=== PATIENT | female | born 1945 | race Caucasian/White ===

== ENCOUNTER 2019-10-02 00:43 | Inpatient (IN) | payer MEDICARE, OTHER ==
[2019-10-02 01:57] LABS: #Monocytes 0.7 thou/uL (0.11-0.59); #Neutrophils 12.8 thou/uL (1.40-6.50); %Basophils 0.2 % (0.0-1.0); %Eosinophils 0.1 % (0.0-10.0); %Lymphocytes 6.9 % (21.0-51.0); %Monocytes 4.8 % (0.0-10.0); Hemoglobin 16.6 g/dL (12.0-16.0); Mean Corpuscular HGB CONC 32.2 g/dL (32.0-36.0); Mean Corpuscular Hemoglobin 32.1 pg (27.0-31.0); Mean Corpuscular Volume 99.6 fL (78.0-98.0); Mean Platelet Volume 9.7 fL (7.4-10.4); Platelet Count 180 thou/uL (130-400); RBC Distribution Width 15.2 % (11.5-14.5); Red Blood Cell (RBC) Count 5.17 mill/uL (4.20-5.40); White Blood Cell (WBC) Count 14.5 thou/uL (4.8-10.8)
[2019-10-02 01:57] LABS: Actual Bicarbonate (HCO3a) 29.7 mEq/L (22-28); Analyzer IN Cardio ER; Base Excess (BEa) 3.1 mEq/L (-2.0 to +3.0); CO2 Tension 52.4 mmHg (35.0-45.0); Calcium, Ionized (arterial) 1.33 mmol/L (1.12-1.30); Carboxyhemoglobin (COHb) 1.1 gm% (0.0-3.0); Hemoglobin (Hb) 16.7 g/dL (12.0-16.0); O2 Tension (PaO2), arterial 84.1 mmHg (> 70.0); Potassium - ABG Lab 4.54 mmol/L (3.70-5.30); pH, Arterial 7.37 (7.35-7.45)
[2019-10-02 01:58] LABS: Puncture Site RRA
[2019-10-02 02:12] LABS: ALT (SGPT) 38 U/L (8-55); AST (SGOT) 35 U/L (5-34); Albumin 3.7 g/dL (3.4-4.8); Alkaline Phosphatase 77 U/L (40-110); Anion Gap 13 mmol/L (10-20); BUN (Urea Nitrogen) 53 mg/dL (9.8-20.1); Bilirubin, Total 1.3 mg/dL (0.2-1.2); Calc. Creatinine Clearance 0 mL/min (70-130); Calcium 10.4 mg/dL (7.8-10.44); Carbon Dioxide 32 mmol/L (23-31); Chloride 102 mmol/L (98-107); Estimated GFR-MDRD 38; Globulin 2.7 g/dL (2.4-3.5); Glucose 136 mg/dL (83-110); Potassium 4.9 mmol/L (3.5-5.1); Protein, Total 6.4 g/dL (6.0-8.3); Sodium 142 mmol/L (136-145)
[2019-10-02 02:44] LABS: CKMB 0.9 ng/mL (0-6.6)
[2019-10-02] MEDS ORDERED: Furosemide 20 MG/2 ML VIAL ONE (03:05)
[2019-10-02 03:51] LABS: Digoxin 0.19 ng/mL (0.8-2.0)
[2019-10-02] MEDS ORDERED: Digoxin 0.5 MG/2 ML AMP ONE (04:23)
[2019-10-02] MEDS ORDERED: Acetaminophen 325 MG TAB PO PRN (04:27)
[2019-10-02] MEDS ORDERED: Acetaminophen 650 MG Suppository PR PRN (04:27)
[2019-10-02] MEDS ORDERED: HYDROcodone/Acetaminophen 5/325 mg Tablet PO PRN (04:27)
--- NOTE | 2019-10-02 04:38 | PDOC.HHP ---
Hospitalist HPI - History of Present Illness sob History of Present Illness: history is limited. patient only oriented to self. no previous admission in this institution, no family members present at the moment of my evaluation Case of an 74y/o female with pmhx of cad, chf atrial fibrillation who comes to hospital due to sob. apparrently patient was on her usual state of health until today when they noted patient with increasing dyspnea and altered mental state for which she was brought to hospital for evaluation. patient usually uses cpap at night and has a chronic melchor, patient was removing her cpap and removed the melchor they got worried due to the change in mentation and brought her for evaluation. at the ED patient was diagnosed with D chf and hospitalist was called for evaluation. patient is only oriented to person jonathon but is able to answer yes/ no question and follow simple commands Hospitalist ROS - Review of Systems All other systems reviewed; all pertinent +/- noted in HPI/Subj Hospitalist History - Past Medical History Cardiac: reports: AFIB, CAD, CHF - Past Surgical History Past Surgical History: reports: Appendectomy, Cholecystectomy, Hysterectomy - Family History Other Family History: unable to asses due to mental status - Social History Other Social History: unable to asses due to mental status - Exam General Appearance: NAD, awake alert Eye: PERRL, anicteric sclera ENT: normocephalic atraumatic, no oropharyngeal lesions Neck: supple, symmetric, JVD Heart: RRR, no murmur, no gallops Respiratory: no ronchi, rales, tachypneic Gastrointestinal: soft, non-tender, non-distended Extremities: no cyanosis, 2+ LE edema Skin: normal turgor, no lesions Neurological: cranial nerve grossly intact, normal sensation to touch Musculoskeletal: normal tone, normal strength Psychiatric: normal affect, normal behavior, oriented to person Hospitalist Results - Labs Result Diagrams: 10/02/19 01:15 10/02/19 01:15 Lab results: WBC 14.5 thou/uL (4.8-10.8) H 10/02/19 01:15 Hgb 16.6 g/dL (12.0-16.0) H 10/02/19 01:15 Hct 51.4 % (36.0-47.0) H 10/02/19 01:15 MCV 99.6 fL (78.0-98.0) H 10/02/19 01:15 Plt Count 180 thou/uL (130-400) 10/02/19 01:15 Neutrophils % 88.0 % (42.0-75.0) H 10/02/19 01:15 ABG pH 7.37 (7.35-7.45) 10/02/19 01:42 ABG pCO2 52.4 mmHg (35.0-45.0) H 10/02/19 01:42 ABG pO2 84.1 mmHg (> 70.0) H 10/02/19 01:42 Sodium 142 mmol/L (136-145) 10/02/19 01:15 Potassium 4.9 mmol/L (3.5-5.1) 10/02/19 01:15 Chloride 102 mmol/L (98-107) 10/02/19 01:15 Carbon Dioxide 32 mmol/L (23-31) H 10/02/19 01:15 BUN 53 mg/dL (9.8-20.1) H 10/02/19 01:15 Creatinine 1.36 mg/dL (0.6-1.1) H 10/02/19 01:15 Glucose 136 mg/dL (83-110) H 10/02/19 01:15 Lactic Acid 1.4 mmol/L (0.5-2.2) 10/02/19 01:15 Calcium 10.4 mg/dL (7.8-10.44) 10/02/19 01:15 Total Bilirubin 1.3 mg/dL (0.2-1.2) H 10/02/19 01:15 AST 35 U/L (5-34) H 10/02/19 01:15 ALT 38 U/L (8-55) 10/02/19 01:15 Alkaline Phosphatase 77 U/L (40-110) 10/02/19 01:15 CK-MB (CK-2) 0.9 ng/mL (0-6.6) 10/02/19 01:15 Troponin I 0.077 ng/mL (< 0.028) H 10/02/19 01:15 B-Natriuretic Peptide 708.7 pg/mL (0-100) H 10/02/19 01:15 Serum Total Protein 6.4 g/dL (6.0-8.3) 10/02/19 01:15 Albumin 3.7 g/dL (3.4-4.8) 10/02/19 01:15 - EKG Interpretation EKG: no ischemic st changes - Radiology Interpretation Chest x-ray Additional Comment: cardiomegaly, vasculor congestion Hospitalist H&P A/P - Problem (1) Decompensated heart failure Code(s): I50.9 - HEART FAILURE, UNSPECIFIED Status: Acute (2) CAD (coronary artery disease) Code(s): I25.10 - ATHSCL HEART DISEASE OF [place] CORONARY ARTERY W/O ANG PCTRS Status: Acute (3) Atrial fibrillation Code(s): I48.91 - UNSPECIFIED ATRIAL FIBRILLATION Status: Acute (4) Leukocytosis Code(s): D72.829 - ELEVATED WHITE BLOOD CELL COUNT, UNSPECIFIED Status: Acute (5) Elevated troponin Code(s): R79.89 - OTHER SPECIFIED ABNORMAL FINDINGS OF BLOOD CHEMISTRY Status : Acute - Plan Plan: 74y/o female with the stated pmhx who comes due to worsening dyspnea and disorientation d chf - lasix 20mg iv q 12 - continue beta chau - consider adding acei, currently 1.36 creatinine unknown if this is a new finding or chronic - 2d echo - consider cardio consult if needed elevated troponin - likely nonstemi type 2 - follow series to evaluate trend atrial fibrillation - continue rate control - patient was not in any blood thinner leukocytosis - unclear if sirs vs infection - due to altered mental state and hx of chronic melchor use will start prophylactic rocephin and get u/a and u/c if needed
[2019-10-02] MEDS ORDERED: cefTRIAXone\\ROCEPHIN 1 GM in Sodium Chloride 0.9% 100 ML IVPB SCH (05:00)
[2019-10-02 05:25] LABS: Troponin I 0.019 ng/mL (< 0.028)
[2019-10-02] MEDS: Furosemide 20 MG/2 ML VIAL SLOW IVP SCH ×2 (06:07→15:09)
[2019-10-02] MEDS: Enoxaparin Sodium 40 MG/0.4 ML SYRINGE SC SCH (07:41)
[2019-10-02] MEDS: Aspirin 81 mg Enteric Coated Tablet PO SCH (07:42)
--- NOTE | 2019-10-02 07:55 | RAD ---
EXAM: Single view of the chest HISTORY: Pneumonia and dyspnea COMPARISON: None FINDINGS: Single view of the chest shows an enlarged cardiomediastinal silhouette. There appears to b e a small left pleural effusion with adjacent atelectasis versus infiltrate. The bones are unremarkable. IMPRESSION: Left pleural effusion with adjacent atelectasis versus infiltrate
[2019-10-02 08:49] LABS: Troponin I 0.013 ng/mL (< 0.028)
[2019-10-02] MEDS ORDERED: Metoprolol Tartrate 25 MG TAB PO SCH (09:00)
[2019-10-02] MEDS: Nystatin Powder 15 GM BOT TOP SCH (10:20)
[2019-10-02] MEDS: Digoxin 0.125 MG TAB PO SCH (10:20)
--- NOTE | 2019-10-02 10:26 | PDOC.HOSPP ---
- Subjective Encounter Date: 10/02/19 Encounter Time: 10:23 Subjective: Patient states she feels better than yesterday, states she feels tired. Denies any pain. She had some toast this morning. No n/v. Difficulty obtaining much information from the patient as she is lethargic. Nurse today state he does not know how she is comparison to when she first came in. - Objective Vital Signs & Weight: Vital Signs (12 hours) Temp Pulse Resp BP Pulse Ox 10/02/19 10:20 90 10/02/19 07:52 97.8 F 90 20 133/72 97 10/02/19 05:12 98 10/02/19 04:55 98.9 F 97 22 H 138/88 98 Weight Weight 225 lb 4.8 oz I&O: Per RN, she had 2 wet diapers this morning. Result Diagrams: 10/02/19 01:15 10/02/19 01:15 Radiology Reviewed by me: Yes EKG Reviewed by me: Yes Hospitalist ROS - Review of Systems ROS unobtainable: due to mental status - Medication Medications: Active Medications Generic Name Dose Route Start Last Admin Trade Name Freq PRN Reason Stop Dose Admin Aspirin 81 mg 10/02/19 09:00 10/02/19 07:42 Ecotrin PO 81 mg DAILY NATALIA Administration Digoxin 0.125 mg 10/02/19 09:00 10/02/19 10:20 Lanoxin PO 0.125 mg MoTuWeThFr NATALIA Administration Enoxaparin Sodium 40 mg 10/02/19 09:00 10/02/19 07:41 Lovenox SC 40 mg 0900 NATALIA Administration Furosemide 20 mg 10/02/19 06:00 10/02/19 06:07 Lasix SLOW IVP 20 mg 0600,1400 NATALIA Administration Metoprolol Succinate 25 mg 10/02/19 09:00 10/02/19 07:42 Toprol Xl PO 25 mg DAILY NATALIA Administration Nystatin 0 gm 10/02/19 09:00 10/02/19 10:20 Mycostatin Powder TOP 1 applic DAILY NATALIA Administration - Exam General Appearance: ill appearing General - other findings: Patient appears lethargic, slight work in breathing ENT: normocephalic atraumatic, no oropharyngeal lesions, dry oral mucosa Neck: supple, no lymphadenopathy Heart: RRR Respiratory: CTAB Respiratory - other findings: slight increased work of breathing, Gastrointestinal: soft, non-tender, non-distended, no guarding, no rigidity Extremities: 2+ LE edema Extremities - other findings: fingertips dusky in appearance Skin: no lesions, no rashes Neurological - other findings: Difficult to assess due to lethargy, opens eyes, does not follow (EOM) Musculoskeletal: generalized weakness Psychiatric: A&O x 3, lethargic Psychiatric - other findings: Continues to states she is tired, answers yes/no questions Hosp A/P (1) Lethargic Code(s): R53.83 - OTHER FATIGUE Status: Acute Plan: Unclear if she is at baseline. Possibly due to underlying infection vs. hypoxia vs. dehydration. UA/UCx ordered. Repeat CXR given questionable infiltrate noted on initial CXR. (2) Mouth breathing Code(s): R06.5 - MOUTH BREATHING Status: Acute Plan: Mouth breathing, with slight increased work of breathing. Dusky appearance to fingertips. Sats low with NC off. I placed NC back on and Sats 90% on 2L. I increased O2 to 3L and sats improved to 96%. Obtain ABG. As above, repeat CXR. (3) Decompensated heart failure Code(s): I50.9 - HEART FAILURE, UNSPECIFIED Status: Acute Plan: Left pleural effusion on CXR, she was started on Lasix 20 mg BID IV. 2+ edema, continue diuretics. BNP 700s. Awaiting Echo. Consult cardiology as per attending. (4) Atrial fibrillation Code(s): I48.91 - UNSPECIFIED ATRIAL FIBRILLATION Status: Chronic Plan: Initially came in with afib RVR, she has resumed digoxin which she takes at home. HR in 80s. Cardiology consult in place re: decompensated HF. Continue cardiac monitoring. (5) Elevated troponin Code(s): R79.89 - OTHER SPECIFIED ABNORMAL FINDINGS OF BLOOD CHEMISTRY Status : Acute Plan: Continue to trend troponin. Continue cardiac monitoring. patient without any chest pain. (6) Leukocytosis Code(s): D72.829 - ELEVATED WHITE BLOOD CELL COUNT, UNSPECIFIED Status: Acute Plan: Repeat CXR to assess questionable infiltrate seen on initial CXR. UA/UCx. Check lactic acid (7) CAD (coronary artery disease) Code(s): I25.10 - ATHSCL HEART DISEASE OF [place] CORONARY ARTERY W/O ANG PCTRS Status: Chronic - Plan old records reviewed/req As above.
[2019-10-02 11:23] LABS: Bacteria/HPF 2+ HPF (None Seen); Bilirubin Negative (Negative); Blood, Urine 2+ (Negative); Clarity Turbid (Clear); Glucose, Urine (Dipstick) Normal (Negative); Ketone, Urine Negative (Negative); Leukocyte 250 Leu/uL (Negative); Nitrite Negative (Negative); Protein, Urine (Dipstick) Negative (Neg-Trace); RBC/HPF 0-3 HPF (0-3); Specific Gravity, Urine 1.014 (1.002-1.036); Squamous Epithelial 0-3 HPF (0-3); Urobilinogen Normal mg/dL (Less than 2); WBC/HPF 0-3 HPF (0-3)
[2019-10-02 11:25] LABS: Urine Culture Reflex Yes Yes
[2019-10-02 11:51] LABS: SARS-CoV-2 MS2 Positive; SARS-CoV-2 N Gene Negative; SARS-CoV-2 S Gene Negative; SARS-CoV-2 by NAA Not Detected (NotDetected); SARS-CoV-2 orf1ab Negative
[2019-10-02 11:53] LABS: Actual Bicarbonate (HCO3a) 32.1 mEq/L (22-28); Base Excess (BEa) 4.6 mEq/L (-2.0 to +3.0); CO2 Tension 58.9 mmHg (35.0-45.0); Calcium, Ionized (arterial) 1.31 mmol/L (1.12-1.30); Carboxyhemoglobin (COHb) 1.4 gm% (0.0-3.0); Hemoglobin (Hb) 15.5 g/dL (12.0-16.0); O2 Tension (PaO2), arterial 96.7 mmHg (> 70.0); pH, Arterial 7.35 (7.35-7.45)
[2019-10-02 11:54] LABS: Puncture Site RRA
[2019-10-02 11:55] LABS: ALV-art Gradient 57.835 (0-20)
[2019-10-02 15:28] LABS: #Eosinphils 0.1 thou/uL (0.0-0.7); #Lymphocytes 1.5 thou/uL (1.20-3.40); #Monocytes 0.7 thou/uL (0.11-0.59); %Basophils 0.3 % (0.0-1.0); %Eosinophils 0.9 % (0.0-10.0); %Lymphocytes 13.5 % (21.0-51.0); %Neutrophils 79.3 % (42.0-75.0); Hemoglobin 16.3 g/dL (12.0-16.0); Mean Corpuscular HGB CONC 31.2 g/dL (32.0-36.0); Mean Corpuscular Hemoglobin 31.8 pg (27.0-31.0); Mean Platelet Volume 9.2 fL (7.4-10.4); Platelet Count 156 thou/uL (130-400); RBC Distribution Width 15.3 % (11.5-14.5); Red Blood Cell (RBC) Count 5.12 mill/uL (4.20-5.40); White Blood Cell (WBC) Count 11.3 thou/uL (4.8-10.8)
--- NOTE | 2019-10-02 15:45 | RAD ---
EXAM: Single view of the chest HISTORY: Pneumonia COMPARISON: 10/02/2019 FINDINGS: Single view of the chest shows an enlarged but stable cardiomediastinal silhouette. Opacity seen in the left lung base which likely represents an infiltrate and adjacent pleural effusion. The bones are unremarkable. IMPRESSION: Left lower lobe infiltrate with adjacent pleural effusion
[2019-10-02 15:51] LABS: ALT (SGPT) 34 U/L (8-55); AST (SGOT) 32 U/L (5-34); Albumin 3.1 g/dL (3.4-4.8); Alkaline Phosphatase 66 U/L (40-110); Anion Gap 13 mmol/L (10-20); BUN (Urea Nitrogen) 46 mg/dL (9.8-20.1); Bilirubin, Direct 0.7 mg/dL (0.1-0.3); Bilirubin, Total 1.5 mg/dL (0.2-1.2); Calc. Creatinine Clearance 80 mL/min (70-130); Calcium 9.6 mg/dL (7.8-10.44); Carbon Dioxide 27 mmol/L (23-31); Chloride 105 mmol/L (98-107); Estimated GFR-MDRD 53; Globulin 2.7 g/dL (2.4-3.5); Glucose 82 mg/dL (83-110); Magnesium 2.3 mg/dL (1.6-2.6); Potassium 4.6 mmol/L (3.5-5.1); Protein, Total 5.8 g/dL (6.0-8.3); Sodium 140 mmol/L (136-145)
[2019-10-02] MEDS: cefTRIAXone\\ROCEPHIN 1 GM in Sodium Chloride 0.9% 100 ML IVPB SCH (19:54)
[2019-10-02] MEDS: traZODone HCl 50 MG TAB PO SCH (19:55)
[2019-10-02] MEDS ORDERED: Prevnar 13-Val Conj/PF 0.5 ML SYRINGE IM ONE ×2 (21:00)
[2019-10-03] MEDS: Furosemide 20 MG/2 ML VIAL SLOW IVP SCH ×2 (04:32→15:47)
[2019-10-03 05:53] LABS: ALT (SGPT) 32 U/L (8-55); AST (SGOT) 27 U/L (5-34); Albumin 3.1 g/dL (3.4-4.8); Alkaline Phosphatase 60 U/L (40-110); Anion Gap 9 mmol/L (10-20); BUN (Urea Nitrogen) 40 mg/dL (9.8-20.1); Bilirubin, Total 1.4 mg/dL (0.2-1.2); Calc. Creatinine Clearance 71 mL/min (70-130); Calcium 9.5 mg/dL (7.8-10.44); Carbon Dioxide 37 mmol/L (23-31); Chloride 101 mmol/L (98-107); Estimated GFR-MDRD 46; Globulin 2.4 g/dL (2.4-3.5); Glucose 91 mg/dL (83-110); Potassium 4.3 mmol/L (3.5-5.1); Protein, Total 5.5 g/dL (6.0-8.3); Sodium 143 mmol/L (136-145)
[2019-10-03 05:56] LABS: #Eosinphils 0.1 thou/uL (0.0-0.7); #Lymphocytes 1.4 thou/uL (1.20-3.40); #Monocytes 0.4 thou/uL (0.11-0.59); #Neutrophils 7.9 thou/uL (1.40-6.50); %Basophils 0.4 % (0.0-1.0); %Eosinophils 1.1 % (0.0-10.0); %Lymphocytes 14.5 % (21.0-51.0); %Monocytes 4.1 % (0.0-10.0); %Neutrophils 79.9 % (42.0-75.0); Hemoglobin 15.5 g/dL (12.0-16.0); Mean Corpuscular HGB CONC 32.4 g/dL (32.0-36.0); Mean Corpuscular Hemoglobin 32.3 pg (27.0-31.0); Mean Corpuscular Volume 99.6 fL (78.0-98.0); Mean Platelet Volume 10.5 fL (7.4-10.4); Platelet Count 118 thou/uL (130-400); Platelet Morphology Comment Appears Decreased; Red Blood Cell (RBC) Count 4.78 mill/uL (4.20-5.40); White Blood Cell (WBC) Count 9.8 thou/uL (4.8-10.8)
[2019-10-03] MEDS: Aspirin 81 mg Enteric Coated Tablet PO SCH (11:39)
[2019-10-03] MEDS: Metoprolol Tartrate 25 MG TAB PO SCH ×2 (11:39→21:36)
[2019-10-03] MEDS: Enoxaparin Sodium 40 MG/0.4 ML SYRINGE SC SCH (11:40)
[2019-10-03] MEDS: PARoxetine CR 12.5 MG TAB PO SCH (11:40)
[2019-10-03] MEDS: Digoxin 0.125 MG TAB PO SCH (11:42)
[2019-10-03 13:13] LABS: INR-International Normal Ratio 2.3; Prothrombin Time 24.9 sec (12.0-14.7)
[2019-10-03] MEDS: Nystatin Powder 15 GM BOT TOP SCH (15:52)
--- NOTE | 2019-10-03 16:34 | PDOC.HOSPP ---
- Subjective Encounter Date: 10/03/19 Encounter Time: 16:30 Subjective: rsting, no acute cp or distress. disuresed, tampon cath, urine outut around 800ml in the contianer. COVID neg. - Objective Vital Signs & Weight: Vital Signs (12 hours) Temp Pulse Pulse Pulse Resp BP BP 10/03/19 11:42 98.3 F 91 24 H 10/03/19 09:51 93 88 120/58 L 111/63 10/03/19 08:00 97.8 F 92 20 BP Pulse Ox Pulse Ox Pulse Ox 10/03/19 11:42 141/62 H 92 L 10/03/19 09:51 96 95 10/03/19 08:00 145/74 H 96 Weight Weight 225 lb 4.8 oz I&O: 10/02/19 10/03/19 10/04/19 06:59 06:59 06:59 Intake Total 1060 Output Total 750 1100 Balance 310 -1100 Result Diagrams: 10/03/19 05:20 10/03/19 05:20 Hospitalist ROS - Medication Medications: Active Medications Generic Name Dose Route Start Last Admin Trade Name Haydenq PRN Reason Stop Dose Admin Aspirin 81 mg 10/02/19 09:00 10/03/19 11:39 Ecotrin PO 81 mg DAILY NATALIA Administration Digoxin 0.125 mg 10/02/19 09:00 10/03/19 11:42 Lanoxin PO 0.125 mg MoTuWeThFr NATALIA Administration Enoxaparin Sodium 40 mg 10/02/19 09:00 10/03/19 11:40 Lovenox SC 40 mg 0900 NATALIA Administration Furosemide 20 mg 10/02/19 06:00 10/03/19 15:47 Lasix SLOW IVP 20 mg 0600,1400 NATALIA Administration Ceftriaxone Sodium 1 gm/ 100 mls @ 200 mls/hr 10/02/19 20:00 10/02/19 19:54 Sodium Chloride IVPB 100 mls Q24HR NATALIA Administration Metoprolol Tartrate 25 mg 10/03/19 09:00 10/03/19 11:39 Lopressor PO 25 mg BID NATALIA Administration Nystatin 0 gm 10/02/19 09:00 10/03/19 15:52 Mycostatin Powder TOP 1 applic DAILY NATALIA Administration Paroxetine HCl 37.5 mg 10/03/19 09:00 10/03/19 11:40 Paxil Cr PO 37.5 mg DAILY NATALIA Administration Sodium Chloride 10 ml 10/02/19 21:00 10/03/19 15:47 Flush - Normal Saline IVF 10 ml Q12HR NATALIA Administration Sodium Chloride 10 ml 10/02/19 12:13 10/03/19 15:50 Flush - Normal Saline IVF 10 ml PRN PRN Administration Saline Flush Trazodone HCl 50 mg 10/02/19 21:00 10/02/19 19:55 Desyrel PO 50 mg HS NATALIA Administration - Exam General Appearance: NAD, awake alert Eye: PERRL, anicteric sclera ENT: normocephalic atraumatic Neck: supple Heart: RRR, normal peripheral pulses Respiratory: CTAB, normal chest expansion Gastrointestinal: soft, normal bowel sounds Extremities: 2+ LE edema Hosp A/P - Plan (1) Lethargic Code(s): R53.83 - OTHER FATIGUE Status: Acute Plan: Unclear if she is at baseline. Possibly due to underlying infection vs. hypoxia vs. dehydration. UA/UCx ordered. Repeat CXR given questionable infiltrate noted on initial CXR. (2) Mouth breathing Code(s): R06.5 - MOUTH BREATHING Status: Acute Plan: Mouth breathing, with slight increased work of breathing. Dusky appearance to fingertips. Sats low with NC off. I placed NC back on and Sats 90% on 2L. I increased O2 to 3L and sats improved to 96%. Obtain ABG. As above, repeat CXR. (3) Decompensated heart failure Code(s): I50.9 - HEART FAILURE, UNSPECIFIED Status: Acute Plan: Left pleural effusion on CXR, she was started on Lasix 20 mg BID IV. 2+ edema, continue diuretics. BNP 700s. Awaiting Echo. Consult cardiology as per attending. (4) Atrial fibrillation Code(s): I48.91 - UNSPECIFIED ATRIAL FIBRILLATION Status: Chronic Plan: Initially came in with afib RVR, she has resumed digoxin which she takes at home. HR in 80s. Cardiology consult in place re: decompensated HF. Continue cardiac monitoring. (5) Elevated troponin Code(s): R79.89 - OTHER SPECIFIED ABNORMAL FINDINGS OF BLOOD CHEMISTRY Status : Acute Plan: Continue to trend troponin. Continue cardiac monitoring. patient without any chest pain. (6) Leukocytosis Code(s): D72.829 - ELEVATED WHITE BLOOD CELL COUNT, UNSPECIFIED Status: Acute Plan: Repeat CXR to assess questionable infiltrate seen on initial CXR. UA/UCx. Check lactic acid (7) CAD (coronary artery disease) Code(s): I25.10 - ATHSCL HEART DISEASE OF [place] CORONARY ARTERY W/O ANG PCTRS Status: Chronic cont diureisis COVID neg' labs
[2019-10-03] MEDS: Warfarin Sodium 5 MG TAB PO SCH (18:36)
[2019-10-03] MEDS: traZODone HCl 50 MG TAB PO SCH (21:36)
[2019-10-03] MEDS: cefTRIAXone\\ROCEPHIN 1 GM in Sodium Chloride 0.9% 100 ML IVPB SCH (21:36)
[2019-10-04 04:40] LABS: Prothrombin Time 22.7 sec (12.0-14.7)
[2019-10-04 04:54] LABS: Anion Gap 8 mmol/L (10-20); BUN (Urea Nitrogen) 27 mg/dL (9.8-20.1); Calc. Creatinine Clearance 82 mL/min (70-130); Calcium 8.9 mg/dL (7.8-10.44); Carbon Dioxide 37 mmol/L (23-31); Chloride 99 mmol/L (98-107); Estimated GFR-MDRD 57; Glucose 92 mg/dL (83-110); Potassium 3.8 mmol/L (3.5-5.1); Sodium 140 mmol/L (136-145)
[2019-10-04] MEDS: Furosemide 20 MG/2 ML VIAL SLOW IVP SCH ×2 (06:12→15:21)
[2019-10-04] MEDS: Metoprolol Tartrate 25 MG TAB PO SCH ×2 (09:45→22:01)
[2019-10-04] MEDS: PARoxetine CR 12.5 MG TAB PO SCH (09:45)
[2019-10-04] MEDS: Aspirin 81 mg Enteric Coated Tablet PO SCH (09:45)
[2019-10-04] MEDS: Digoxin 0.125 MG TAB PO SCH (09:45)
[2019-10-04 10:13] LABS: Digoxin 0.46 ng/mL (0.8-2.0)
[2019-10-04] MEDS: Nystatin Powder 15 GM BOT TOP SCH (10:35)
[2019-10-04] MEDS: Enoxaparin Sodium 40 MG/0.4 ML SYRINGE SC SCH (12:58)
--- NOTE | 2019-10-04 14:17 | PDOC.HOSPP ---
- Subjective Encounter Date: 10/04/19 Encounter Time: 09:40 Subjective: pt doing well, not OOB, but able to- says. neg balance; 8 lbs wt loss, still has pitting edema 2+ in LE. - Objective Vital Signs & Weight: Vital Signs (12 hours) Temp Pulse Resp BP Pulse Ox 10/04/19 12:51 97.7 F 70 19 107/60 92 L 10/04/19 08:39 98.1 F 95 20 136/65 96 10/04/19 06:10 98.0 F 89 20 137/68 97 10/04/19 05:44 95 Weight Weight 217 lb 4.8 oz I&O: 10/03/19 10/04/19 10/05/19 06:59 06:59 06:59 Intake Total 1060 240 Output Total 750 3100 1000 Balance 310 -5470 -1000 Result Diagrams: 10/03/19 05:20 10/04/19 04:23 Hospitalist ROS - Medication Medications: Active Medications Generic Name Dose Route Start Last Admin Trade Name [place] PRN Reason Stop Dose Admin Aspirin 81 mg 10/02/19 09:00 10/04/19 09:45 Ecotrin PO 81 mg DAILY NATALIA Administration Digoxin 0.125 mg 10/02/19 09:00 10/04/19 09:45 Lanoxin PO 0.125 mg MoTuWeThFr NATALIA Administration Enoxaparin Sodium 40 mg 10/02/19 09:00 10/04/19 12:58 Lovenox SC 40 mg 0900 NATALIA Administration Furosemide 20 mg 10/02/19 06:00 10/04/19 06:12 Lasix SLOW IVP 20 mg 0600,1400 NATALIA Administration Ceftriaxone Sodium 1 gm/ 100 mls @ 200 mls/hr 10/02/19 20:00 10/03/19 21:36 Sodium Chloride IVPB 100 mls Q24HR NATALIA Administration Metoprolol Tartrate 25 mg 10/03/19 09:00 10/04/19 09:45 Lopressor PO 25 mg BID NATALIA Administration Nystatin 0 gm 10/02/19 09:00 10/04/19 10:35 Mycostatin Powder TOP 1 applic DAILY NATALIA Administration Paroxetine HCl 37.5 mg 10/03/19 09:00 10/04/19 09:45 Paxil Cr PO 37.5 mg DAILY NATALIA Administration Sodium Chloride 10 ml 10/02/19 21:00 07/15/20 13:01 Flush - Normal Saline IVF Not Given Q12HR NATALIA Sodium Chloride 10 ml 10/02/19 12:13 10/03/19 15:50 Flush - Normal Saline IVF 10 ml PRN PRN Administration Saline Flush Trazodone HCl 50 mg 10/02/19 21:00 10/03/19 21:36 Desyrel PO 50 mg HS NATALIA Administration Warfarin Sodium 5 mg 10/03/19 17:00 10/03/19 18:36 Coumadin PO 5 mg 1700 NATALIA Administration - Exam General Appearance: NAD, awake alert Eye: PERRL ENT: normocephalic atraumatic Neck: supple Heart: RRR Respiratory: CTAB, normal chest expansion Gastrointestinal: soft, normal bowel sounds Extremities: 2+ LE edema Neurological: no focal deficits Hosp A/P - Plan (1) Lethargic Code(s): R53.83 - OTHER FATIGUE Status: Acute Plan: Unclear if she is at baseline. Possibly due to underlying infection vs. hypoxia vs. dehydration. UA/UCx ordered. Repeat CXR given questionable infiltrate noted on initial CXR. (2) Mouth breathing Code(s): R06.5 - MOUTH BREATHING Status: Acute Plan: Mouth breathing, with slight increased work of breathing. Dusky appearance to fingertips. Sats low with NC off. I placed NC back on and Sats 90% on 2L. I increased O2 to 3L and sats improved to 96%. Obtain ABG. As above, repeat CXR. (3) Decompensated heart failure Code(s): I50.9 - HEART FAILURE, UNSPECIFIED Status: Acute Plan: Left pleural effusion on CXR, she was started on Lasix 20 mg BID IV. 2+ edema, continue diuretics. BNP 700s. (4) Atrial fibrillation Code(s): I48.91 - UNSPECIFIED ATRIAL FIBRILLATION Status: Chronic Plan: Initially came in with afib RVR, she has resumed digoxin which she takes at home. HR in 80s. - on coumadin--therapeutic. (5) Elevated troponin Code(s): R79.89 - OTHER SPECIFIED ABNORMAL FINDINGS OF BLOOD CHEMISTRY Status : Acute Plan: Continue to trend troponin. Continue cardiac monitoring. patient without any chest pain. (6) Leukocytosis Code(s): D72.829 - ELEVATED WHITE BLOOD CELL COUNT, UNSPECIFIED Status: Acute Plan: Repeat CXR to assess questionable infiltrate seen on initial CXR. UA/UCx. Check lactic acid (7) CAD (coronary artery disease) Code(s): I25.10 - ATHSCL HEART DISEASE OF [place] CORONARY ARTERY W/O ANG PCTRS Status: Chronic cont diureisis--inc the dose as still has 2+ pitting edema COVID neg' chronic meta alkalosis - d/t being on chr diuretics -expect to go up. - will give diamox, as she needs little more diuresis. -echo eF 60% LAD, no aort insuff. PT/OT c/s/ labs
[2019-10-04] MEDS ORDERED: Furosemide 20 MG/2 ML VIAL SLOW IVP SCH (14:30)
[2019-10-04] MEDS: Warfarin Sodium 5 MG TAB PO SCH (19:00)
[2019-10-04] MEDS: AcetaZOLAMIDE 250 MG TAB PO SCH (22:00)
[2019-10-04] MEDS: traZODone HCl 50 MG TAB PO SCH (22:02)
[2019-10-05 04:17] LABS: INR-International Normal Ratio 2.7; PTT 37.7 sec (22.9-36.1); Prothrombin Time 28.5 sec (12.0-14.7)
[2019-10-05 04:30] LABS: BUN (Urea Nitrogen) 19 mg/dL (9.8-20.1); Calc. Creatinine Clearance 86 mL/min (70-130); Calcium 8.9 mg/dL (7.8-10.44); Estimated GFR-MDRD 62; Glucose 92 mg/dL (83-110)
[2019-10-05 04:41] LABS: Anion Gap 11 mmol/L (10-20); Carbon Dioxide 34 mmol/L (23-31); Chloride 96 mmol/L (98-107); Potassium 3.4 mmol/L (3.5-5.1); Sodium 138 mmol/L (136-145)
[2019-10-05] MEDS ORDERED: Furosemide 40 MG/4 ML VIAL SLOW IVP SCH ×2 (06:00→08:36)
[2019-10-05] MEDS: Enoxaparin Sodium 40 MG/0.4 ML SYRINGE SC SCH (08:36)
[2019-10-05] MEDS: Metoprolol Tartrate 25 MG TAB PO SCH ×2 (08:37→20:39)
[2019-10-05] MEDS: Digoxin 0.125 MG TAB PO SCH (08:37)
[2019-10-05] MEDS: Aspirin 81 mg Enteric Coated Tablet PO SCH (08:38)
[2019-10-05] MEDS: Nystatin Powder 15 GM BOT TOP SCH (08:38)
[2019-10-05] MEDS: AcetaZOLAMIDE 250 MG TAB PO SCH ×2 (08:38→20:38)
[2019-10-05] MEDS: PARoxetine CR 12.5 MG TAB PO SCH (08:38)
[2019-10-05] MEDS ORDERED: Furosemide 20 MG/2 ML VIAL SLOW IVP SCH ×2 (08:45→14:00)
--- NOTE | 2019-10-05 12:38 | PDOC.HOSPP ---
- Subjective Encounter Date: 10/05/19 Encounter Time: 09:10 Subjective: pt looks little fatigued. being diuresed. emea is improving, negative balance over 1.8 li - Objective Vital Signs & Weight: Vital Signs (12 hours) Temp Pulse Pulse Resp BP BP BP 10/05/19 11:21 98.6 F 69 18 115/63 10/05/19 09:24 85 113/57 L 10/05/19 08:35 98.2 F 89 18 111/58 L 10/05/19 03:40 97.8 F 81 18 132/80 Pulse Ox Pulse Ox 10/05/19 11:21 96 10/05/19 09:24 96 10/05/19 08:35 92 L 10/05/19 03:40 95 Weight Weight 211 lb 12.8 oz I&O: 10/04/19 10/05/19 10/06/19 06:59 06:59 06:59 Intake Total 240 424 Output Total 3100 2250 Balance -4695 -9018 Result Diagrams: 10/03/19 05:20 10/05/19 03:40 Hospitalist ROS - Medication Medications: Active Medications Generic Name Dose Route Start Last Admin Trade Name Freq PRN Reason Stop Dose Admin Acetazolamide 500 mg 10/04/19 21:00 10/05/19 08:38 Diamox PO 10/06/19 10:00 500 mg BID NATALIA Administration Aspirin 81 mg 10/02/19 09:00 10/05/19 08:38 Ecotrin PO 81 mg DAILY NATALIA Administration Digoxin 0.125 mg 10/02/19 09:00 10/05/19 08:37 Lanoxin PO 0.125 mg MoTuWeThFr NATALIA Administration Enoxaparin Sodium 40 mg 10/02/19 09:00 10/05/19 08:36 Lovenox SC 40 mg 0900 NATALIA Administration Metoprolol Tartrate 6.25 mg 10/04/19 21:00 10/05/19 08:37 Lopressor PO 6.25 mg BID NATALIA Administration Nystatin 0 gm 10/02/19 09:00 10/05/19 08:38 Mycostatin Powder TOP 1 applic DAILY NATALIA Administration Paroxetine HCl 37.5 mg 10/03/19 09:00 10/05/19 08:38 Paxil Cr PO 37.5 mg DAILY NATALIA Administration Sodium Chloride 10 ml 10/02/19 21:00 10/05/19 08:38 Flush - Normal Saline IVF 10 ml Q12HR NATALIA Administration Sodium Chloride 10 ml 10/02/19 12:13 10/05/19 05:47 Flush - Normal Saline IVF 10 ml PRN PRN Administration Saline Flush Warfarin Sodium 5 mg 10/03/19 17:00 10/04/19 19:00 Coumadin PO 5 mg 1700 NATALIA Administration - Exam General Appearance: NAD, awake alert Eye: PERRL ENT: normocephalic atraumatic Neck: supple Heart: RRR Respiratory: CTAB, normal chest expansion Gastrointestinal: soft, normal bowel sounds Extremities: 1+ LE edema Neurological: no focal deficits Hosp A/P - Plan (1) Lethargic Code(s): R53.83 - OTHER FATIGUE Status: Acute Plan: Unclear if she is at baseline. Possibly due to underlying infection vs. hypoxia vs. dehydration. UA/UCx ordered. Repeat CXR given questionable infiltrate noted on initial CXR. (2) Mouth breathing Code(s): R06.5 - MOUTH BREATHING Status: Acute Plan: Mouth breathing, with slight increased work of breathing. Dusky appearance to fingertips. Sats low with NC off. I placed NC back on and Sats 90% on 2L. I increased O2 to 3L and sats improved to 96%. Obtain ABG. As above, repeat CXR. (3) Decompensated heart failure Code(s): I50.9 - HEART FAILURE, UNSPECIFIED Status: Acute Plan: Left pleural effusion on CXR, she was started on Lasix 20 mg BID IV. 2+ edema, continue diuretics. BNP 700s. (4) Atrial fibrillation Code(s): I48.91 - UNSPECIFIED ATRIAL FIBRILLATION Status: Chronic Plan: Initially came in with afib RVR, she has resumed digoxin which she takes at home. HR in 80s. - on coumadin--therapeutic. (5) Elevated troponin Code(s): R79.89 - OTHER SPECIFIED ABNORMAL FINDINGS OF BLOOD CHEMISTRY Status : Acute Plan: Continue to trend troponin. Continue cardiac monitoring. patient without any chest pain. (6) Leukocytosis Code(s): D72.829 - ELEVATED WHITE BLOOD CELL COUNT, UNSPECIFIED Status: Acute Plan: Repeat CXR to assess questionable infiltrate seen on initial CXR. UA/UCx. Check lactic acid (7) CAD (coronary artery disease) Code(s): I25.10 - ATHSCL HEART DISEASE OF [place] CORONARY ARTERY W/O ANG PCTRS Status: Chronic cont diureisis--inc the dose as still has 2+ pitting edema COVID neg' chronic meta alkalosis - d/t being on chr diuretics -expect to go up. - will give diamox, as she needs little more diuresis. -echo eF 60% LAD, no aort insuff. PT/OT c/s/ labs pt lives w.. dtr plan for dc tomorrow.
--- NOTE | 2019-10-05 15:27 | PQF ---
CLINICAL DOCUMENTATION CLARIFICATION FORM: Patient Name: SAM IVEY Date of : 1945 Account: [id number] Admit Date: 10/02/2019 Facility: [facility] [place] - [place] [address]. Land Date: 10/05/2019 Please exercise your independent, professional judgment in responding to the clarification form. Clinical indicators are provided on the bottom of this form for your review. Please check appropriate box(es) to clarify if the following diagnosis has been ruled in our ruled out: Sepsis [ ] Ruled in diagnosis [ ] Continue to treat [ ] Resolved [x ] Ruled out diagnosis [ ] Improving [ ] Cannot rule out diagnosis [ ] Other diagnosis [ ] Unable to determine In addition, please specify: Present on Admission (POA): [ ] Yes [ ] No [ ] Unable to determine For continuity of documentation, please document condition throughout progress notes and discharge summary. Thank You. To be completed by CDI/Coding staff for physician review: CLINICAL INDICATORS - SIGNS / SYMPTOMS / LABS / RESULTS AND LOCATION IN MR ER Record 10/01: VS: BP 143/82, pulse 114, resp. 20 O2 sat 99 on NRB Doctor notes: Labs consistent with acute CHF exacerbation. indeterminate troponin as well. She meets criteria for sepsis with elevated white blood cell count, tachycardia. She had evidence for pneumonia on the chest x-ray. Diagnosis: Acute CHF exac. Atrial fib; Elevated Troponin, Sepsis from pneumonia H&P 10/01 Mar: pt with increasing dyspnea and altered mental state for which she was brought to hosp for eval Labs: WBC 14.5 Neutrophils % 88% A/P: Decompensate heart failure leukocytosis - unclear if sirs vs infection 10/02 ([place]) Repeat CXR given questionable infiltrate noted on initial CXR RISK FACTORS / RESULTS AND LOCATION IN MR H&P 10/01 (Mar) 74 yo female with pmhx of cad, chf, atrial fib, comes to hosp. Due to sob. A/P: Decompensated heart failure. Elevated troponin likely nonstemi type 2. Leukocytosis. TREATMENTS / RESULTS AND LOCATION IN MR Order 10/01-10/03: Rocephin 1 gm IV q 24 hr Order 10/01: Resp: O2 to keep sats 92% Thank you, Lianna Gregorio RN, BSN [email or web address] This is a permanent part of the Medical Record [facility]
--- NOTE | 2019-10-05 16:17 | PQF ---
CLINICAL DOCUMENTATION CLARIFICATION FORM: Patient Name: SAM IVEY Date of : 1945 Account: [id number] Admit Date: 10/02/2019 Facility: [facility] - [place] [address] Land Date: 10/05/2019 Please exercise your independent, professional judgment in responding to the clarification form. Clinical indicators are provided on the bottom of this form for your review. Please check appropriate box(es): HEART FAILURE TYPE: [ ] Acute Diastolic / HFpEF [ x] Acute on Chronic Diastolic [ ] Acute Systolic / HFrEF [ ] Acute on Chronic Systolic/HFrEF [ ] Acute Combined Systolic / Diastolic [ ] Acute on Chronic Combine Systolic / Diastolic [ ] Other diagnosis [ ] Unable to determine In addition, please specify: Present on Admission (POA): [ ] Yes [ ] No [ ] Unable to determine For continuity of documentation, please document condition throughout progress notes and discharge summary. Thank You. To be completed by CDI/Coding staff for physician review: CLINICAL INDICATORS - SIGNS / SYMPTOMS / LABS / RESULTS AND LOCATION IN EMR ER Record 10/01: Chief Complaint: Pt presents for evaluation of congestive heart failure Doctor Notes: Labs consistent with acute CHF exacerbation. H&P 10/01 (Mar): at the ED pt was diagnosed with D chf Lab: B-Natriuretic Peptide 708.7 A/P: Decompensated heart failure. Acute Heart failure unspecified. D chf 10/01 (Brooke) Left pleural effusion on CXR 10/03 ([place]y) A/P Decompensated heart failure 2+ edema Echo EF 60% RISKS FACTORS / RESULTS AND LOCATION IN EMR H&P 10/01 (Mar) PMH: A fib, CAD, CHF TREATMENTS / RESULTS AND LOCATION IN EMR H&P 10/01 (Mar) A/P: Lasix 20 mg iv q 12 Continue beta chau 2d echo Order 10/01 Resp: O2 to keep sats 92% Thank you, Lianna Gregorio, RN, BSN [email or web address] This is a permanent part of the Medical Record [facility]
[2019-10-05] MEDS: Warfarin Sodium 5 MG TAB PO SCH (16:44)
[2019-10-05] MEDS: traZODone HCl 50 MG TAB PO SCH (20:39)
[2019-10-06 05:06] LABS: INR-International Normal Ratio 3.2; PTT 41.9 sec (22.9-36.1); Prothrombin Time 32.3 sec (12.0-14.7)
[2019-10-06 05:20] LABS: Anion Gap 10 mmol/L (10-20); BUN (Urea Nitrogen) 19 mg/dL (9.8-20.1); Calc. Creatinine Clearance 94 mL/min (70-130); Calcium 9.1 mg/dL (7.8-10.44); Carbon Dioxide 31 mmol/L (23-31); Chloride 99 mmol/L (98-107); Estimated GFR-MDRD 69; Glucose 89 mg/dL (83-110); Potassium 3.2 mmol/L (3.5-5.1); Sodium 137 mmol/L (136-145)
[2019-10-06] MEDS: PARoxetine CR 12.5 MG TAB PO SCH (07:52)
[2019-10-06] MEDS: Aspirin 81 mg Enteric Coated Tablet PO SCH (07:52)
[2019-10-06] MEDS: Furosemide 40 MG TAB PO SCH (07:54)
[2019-10-06] MEDS: AcetaZOLAMIDE 250 MG TAB PO SCH (07:54)
[2019-10-06] MEDS: Metoprolol Tartrate 25 MG TAB PO SCH ×2 (07:54→20:30)
[2019-10-06] MEDS: Enoxaparin Sodium 40 MG/0.4 ML SYRINGE SC SCH (07:55)
[2019-10-06] MEDS: Nystatin Powder 15 GM BOT TOP SCH (08:03)
[2019-10-06] MEDS: Digoxin 0.125 MG TAB PO SCH (08:09)
[2019-10-06] MEDS ORDERED: Potassium Citrate 10 MEQ TAB PO SCH (08:45)
[2019-10-06 09:20] LABS: INR-International Normal Ratio 3.5; Prothrombin Time 34.6 sec (12.0-14.7)
--- NOTE | 2019-10-06 14:28 | PDOC.HOSPP ---
- Subjective Encounter Date: 10/06/19 Encounter Time: 09:20 Subjective: dc plan discussed, she is doing well. she was saying all along, wanting to go home now dc process discussed and wants reahb as dtr wants her to go to rehab. - Objective Vital Signs & Weight: Vital Signs (12 hours) Temp Pulse Resp BP Pulse Ox 10/06/19 12:55 98.0 F 86 18 102/51 L 95 10/06/19 08:09 88 10/06/19 07:49 97.8 F 88 18 116/75 96 10/06/19 07:36 96 10/06/19 03:51 98.4 F 88 16 136/64 92 L Weight Weight 201 lb I&O: 10/05/19 10/06/19 10/07/19 06:59 06:59 06:59 Intake Total 424 1200 Output Total 2250 0 Balance -0062 -734 Result Diagrams: 10/03/19 05:20 10/06/19 04:28 Hospitalist ROS - Medication Medications: Active Medications Generic Name Dose Route Start Last Admin Trade Name Freq PRN Reason Stop Dose Admin Aspirin 81 mg 10/02/19 09:00 10/06/19 07:52 Ecotrin PO 81 mg DAILY NATALIA Administration Digoxin 0.125 mg 10/02/19 09:00 10/06/19 08:09 Lanoxin PO 0.125 mg MoTuWeThFr NATALIA Administration Enoxaparin Sodium 40 mg 10/02/19 09:00 10/06/19 07:55 Lovenox SC 40 mg 0900 NATALIA Administration Furosemide 40 mg 10/06/19 09:00 10/06/19 07:54 Lasix PO 40 mg QAM NATALIA Administration Metoprolol Tartrate 6.25 mg 10/04/19 21:00 10/06/19 07:54 Lopressor PO 6.25 mg BID NATALIA Administration Nystatin 0 gm 10/02/19 09:00 10/06/19 08:03 Mycostatin Powder TOP 1 applic DAILY NATALIA Administration Paroxetine HCl 37.5 mg 10/03/19 09:00 10/06/19 07:52 Paxil Cr PO 37.5 mg DAILY NATALIA Administration Sodium Chloride 10 ml 10/02/19 21:00 10/06/19 07:56 Flush - Normal Saline IVF 10 ml Q12HR NATALIA Administration Sodium Chloride 10 ml 10/02/19 12:13 10/05/19 05:47 Flush - Normal Saline IVF 10 ml PRN PRN Administration Saline Flush Trazodone HCl 200 mg 10/04/19 23:14 10/05/19 20:39 Desyrel PO 200 mg HS NATALIA Administration Warfarin Sodium 5 mg 10/03/19 17:00 10/05/19 16:44 Coumadin PO 5 mg 1700 NATALIA Administration - Exam Eye: PERRL, anicteric sclera ENT: normocephalic atraumatic Neck: supple Heart: RRR Respiratory: CTAB, normal chest expansion Gastrointestinal: normal bowel sounds Extremities: 1+ LE edema Neurological: no focal deficits Psychiatric: A&O x 3 Hosp A/P - Plan (1) Lethargic Code(s): R53.83 - OTHER FATIGUE Status: Acute Plan: Unclear if she is at baseline. Possibly due to underlying infection vs. hypoxia vs. dehydration. UA/UCx ordered. Repeat CXR given questionable infiltrate noted on initial CXR. (2) Mouth breathing Code(s): R06.5 - MOUTH BREATHING Status: Acute Plan: Mouth breathing, with slight increased work of breathing. Dusky appearance to fingertips. Sats low with NC off. I placed NC back on and Sats 90% on 2L. I increased O2 to 3L and sats improved to 96%. Obtain ABG. As above, repeat CXR. (3) Decompensated heart failure Code(s): I50.9 - HEART FAILURE, UNSPECIFIED Status: Acute Plan: Left pleural effusion on CXR, she was started on Lasix 20 mg BID IV. 2+ edema, continue diuretics. BNP 700s. (4) Atrial fibrillation Code(s): I48.91 - UNSPECIFIED ATRIAL FIBRILLATION Status: Chronic Plan: Initially came in with afib RVR, she has resumed digoxin which she takes at home. HR in 80s. - on coumadin--therapeutic. (5) Elevated troponin Code(s): R79.89 - OTHER SPECIFIED ABNORMAL FINDINGS OF BLOOD CHEMISTRY Status : Acute Plan: Continue to trend troponin. Continue cardiac monitoring. patient without any chest pain. (6) Leukocytosis Code(s): D72.829 - ELEVATED WHITE BLOOD CELL COUNT, UNSPECIFIED Status: Acute Plan: Repeat CXR to assess questionable infiltrate seen on initial CXR. UA/UCx. Check lactic acid (7) CAD (coronary artery disease) Code(s): I25.10 - ATHSCL HEART DISEASE OF [place] CORONARY ARTERY W/O ANG PCTRS Status: Chronic cont diureisis--inc the dose as still has 2+ pitting edema COVID neg' chronic meta alkalosis - d/t being on chr diuretics -expect to go up. - will give diamox, as she needs little more diuresis. -echo eF 60% LAD, no aort insuff. - off iV diuresis -lasix PO hold dc orders rehab placement pending.
[2019-10-06] MEDS: Warfarin Sodium 5 MG TAB PO SCH (17:08)
[2019-10-06 18:36] LABS: Hemoglobin 15.7 g/dL (12.0-16.0); Platelet Count 125 thou/uL (130-400)
[2019-10-06] MEDS: traZODone HCl 50 MG TAB PO SCH (20:31)
[2019-10-07 04:41] LABS: INR-International Normal Ratio 2.5; PTT 39.9 sec (22.9-36.1); Prothrombin Time 26.6 sec (12.0-14.7)
[2019-10-07] MEDS: Aspirin 81 mg Enteric Coated Tablet PO SCH (09:33)
[2019-10-07] MEDS: Enoxaparin Sodium 40 MG/0.4 ML SYRINGE SC SCH (09:34)
[2019-10-07] MEDS: Metoprolol Tartrate 25 MG TAB PO SCH ×2 (09:34→21:19)
[2019-10-07] MEDS: Furosemide 40 MG TAB PO SCH (09:34)
[2019-10-07] MEDS: PARoxetine CR 12.5 MG TAB PO SCH (09:35)
[2019-10-07] MEDS: Nystatin Powder 15 GM BOT TOP SCH (09:37)
[2019-10-07 09:50] LABS: INR-International Normal Ratio 2.4; Prothrombin Time 25.8 sec (12.0-14.7)
--- NOTE | 2019-10-07 13:36 | PDOC.HOSPP ---
- Subjective Encounter Date: 10/07/19 Encounter Time: 10:05 Subjective: pt doing well, sleepy, no acute events o/n. K is being replaced. HCO3 level improved. INR therapeutic. - Objective Vital Signs & Weight: Vital Signs (12 hours) Temp Pulse Resp BP Pulse Ox 10/07/19 11:04 98.1 F 81 16 109/59 L 94 L 10/07/19 07:25 98.0 F 77 18 115/65 93 L 10/07/19 03:55 97.6 F 74 16 116/55 L 93 L Weight Weight 195 lb 6.4 oz I&O: 10/06/19 10/07/19 10/08/19 06:59 06:59 06:59 Intake Total 1200 1180 240 Output Total 2050 2500 Balance -850 -1320 240 Result Diagrams: 10/06/19 18:16 10/06/19 04:28 Hospitalist ROS - Medication Medications: Active Medications Generic Name Dose Route Start Last Admin Trade Name Freq PRN Reason Stop Dose Admin Aspirin 81 mg 10/02/19 09:00 10/07/19 09:33 Ecotrin PO 81 mg DAILY NATALIA Administration Digoxin 0.125 mg 10/02/19 09:00 10/06/19 08:09 Lanoxin PO 0.125 mg MoTuWeThFr NATALIA Administration Enoxaparin Sodium 40 mg 10/02/19 09:00 10/07/19 09:34 Lovenox SC 40 mg 0900 NATALIA Administration Furosemide 40 mg 10/06/19 09:00 10/07/19 09:34 Lasix PO 40 mg QAM NATALIA Administration Metoprolol Tartrate 6.25 mg 10/04/19 21:00 10/07/19 09:34 Lopressor PO 6.25 mg BID NATALIA Administration Nystatin 0 gm 10/02/19 09:00 10/07/19 09:37 Mycostatin Powder TOP 1 applic DAILY NATALIA Administration Paroxetine HCl 37.5 mg 10/03/19 09:00 10/07/19 09:35 Paxil Cr PO 37.5 mg DAILY NATALIA Administration Sodium Chloride 10 ml 10/02/19 21:00 10/07/19 09:37 Flush - Normal Saline IVF 10 ml Q12HR NATALIA Administration Sodium Chloride 10 ml 10/02/19 12:13 10/05/19 05:47 Flush - Normal Saline IVF 10 ml PRN PRN Administration Saline Flush Trazodone HCl 200 mg 10/04/19 23:14 10/06/19 20:31 Desyrel PO 200 mg HS NATALIA Administration Warfarin Sodium 5 mg 10/03/19 17:00 10/06/19 17:08 Coumadin PO Not Given 1700 NATALIA - Exam General Appearance: NAD, awake alert Eye: PERRL ENT: normocephalic atraumatic Neck: supple Heart: RRR, normal peripheral pulses Respiratory: CTAB, normal chest expansion Gastrointestinal: normal bowel sounds Neurological: no focal deficits Psychiatric: A&O x 3 Hosp A/P - Plan (1) Lethargic Code(s): R53.83 - OTHER FATIGUE Status: Acute Plan: Unclear if she is at baseline. Possibly due to underlying infection vs. hypoxia vs. dehydration. UA/UCx ordered. Repeat CXR given questionable infiltrate noted on initial CXR. (2) Mouth breathing Code(s): R06.5 - MOUTH BREATHING Status: Acute Plan: Mouth breathing, with slight increased work of breathing. Dusky appearance to fingertips. Sats low with NC off. I placed NC back on and Sats 90% on 2L. I increased O2 to 3L and sats improved to 96%. Obtain ABG. As above, repeat CXR. (3) Decompensated heart failure Code(s): I50.9 - HEART FAILURE, UNSPECIFIED Status: Acute Plan: Left pleural effusion on CXR, she was started on Lasix 20 mg BID IV. 2+ edema, continue diuretics. BNP 700s. (4) Atrial fibrillation Code(s): I48.91 - UNSPECIFIED ATRIAL FIBRILLATION Status: Chronic Plan: Initially came in with afib RVR, she has resumed digoxin which she takes at home. HR in 80s. - on coumadin--therapeutic. (5) Elevated troponin Code(s): R79.89 - OTHER SPECIFIED ABNORMAL FINDINGS OF BLOOD CHEMISTRY Status : Acute Plan: Continue to trend troponin. Continue cardiac monitoring. patient without any chest pain. (6) Leukocytosis Code(s): D72.829 - ELEVATED WHITE BLOOD CELL COUNT, UNSPECIFIED Status: Acute Plan: Repeat CXR to assess questionable infiltrate seen on initial CXR. UA/UCx. Check lactic acid (7) CAD (coronary artery disease) Code(s): I25.10 - ATHSCL HEART DISEASE OF [place] CORONARY ARTERY W/O ANG PCTRS Status: Chronic cont diureisis--inc the dose as still has 2+ pitting edema COVID neg' chronic meta alkalosis - d/t being on chr diuretics -expect to go up. - will give diamox, as she needs little more diuresis. -echo eF 60% LAD, no aort insuff. - off iV diuresis -lasix PO Mild hypocalcemia -replace along w.. K. - give few doses of diamox -am labs -- hold dc orders rehab placement pending.
[2019-10-07] MEDS ORDERED: Potassium Citrate 10 MEQ TAB PO SCH (13:45)
[2019-10-07] MEDS: Warfarin Sodium 5 MG TAB PO SCH (16:39)
[2019-10-07] MEDS: AcetaZOLAMIDE 250 MG TAB PO SCH (21:19)
[2019-10-07] MEDS: traZODone HCl 50 MG TAB PO SCH (21:20)
--- NOTE | 2019-10-07 23:37 | PDOC.EVN ---
Event Note - Event Note Event Note: Night nurse reports patient had a short duration of tachycardia in the 130's while vomiting. Has returned to NSR.
[2019-10-08 04:16] LABS: #Basophils 0.1 thou/uL (0.0-0.2); #Eosinphils 0.1 thou/uL (0.0-0.7); #Lymphocytes 1.6 thou/uL (1.20-3.40); #Monocytes 0.5 thou/uL (0.11-0.59); #Neutrophils 5.4 thou/uL (1.40-6.50); %Basophils 0.7 % (0.0-1.0); %Eosinophils 1.9 % (0.0-10.0); %Lymphocytes 20.7 % (21.0-51.0); %Monocytes 6.4 % (0.0-10.0); %Neutrophils 70.3 % (42.0-75.0); Hemoglobin 15.7 g/dL (12.0-16.0); Mean Corpuscular HGB CONC 32.9 g/dL (32.0-36.0); Mean Corpuscular Hemoglobin 31.5 pg (27.0-31.0); Mean Corpuscular Volume 95.8 fL (78.0-98.0); Platelet Count 133 thou/uL (130-400); Red Blood Cell (RBC) Count 4.99 mill/uL (4.20-5.40); White Blood Cell (WBC) Count 7.7 thou/uL (4.8-10.8)
[2019-10-08 05:06] LABS: INR-International Normal Ratio 1.9; PTT 35.3 sec (22.9-36.1); Prothrombin Time 21.6 sec (12.0-14.7)
[2019-10-08] MEDS: Enoxaparin Sodium 40 MG/0.4 ML SYRINGE SC SCH (08:52)
[2019-10-08] MEDS: Aspirin 81 mg Enteric Coated Tablet PO SCH (08:53)
[2019-10-08] MEDS: Metoprolol Tartrate 25 MG TAB PO SCH ×2 (08:53→20:34)
[2019-10-08] MEDS: AcetaZOLAMIDE 250 MG TAB PO SCH (08:53)
[2019-10-08] MEDS: Furosemide 40 MG TAB PO SCH (08:53)
[2019-10-08] MEDS: Nystatin Powder 15 GM BOT TOP SCH (08:55)
[2019-10-08] MEDS: PARoxetine CR 12.5 MG TAB PO SCH (08:55)
[2019-10-08 08:56] LABS: INR-International Normal Ratio 2.1; Prothrombin Time 23.4 sec (12.0-14.7)
--- NOTE | 2019-10-08 13:06 | PDOC.HOSPP ---
- Subjective Encounter Date: 10/08/19 Encounter Time: 09:50 Subjective: pt had an episode of emesis, not feeling good, tachy -normotensive. - Objective Vital Signs & Weight: Vital Signs (12 hours) Temp Pulse Resp BP Pulse Ox 10/08/19 12:00 94 L 10/08/19 11:27 98.2 F 90 19 118/59 L 94 L 10/08/19 08:51 98.7 F 82 20 113/54 L 94 L 10/08/19 08:00 94 L 10/08/19 03:15 98.2 F 85 16 104/54 L 93 L Weight Weight 194 lb I&O: 10/07/19 10/08/19 10/09/19 06:59 06:59 06:59 Intake Total 1180 1600 Output Total 2500 1650 Balance -1320 -50 Result Diagrams: 10/08/19 03:32 10/06/19 04:28 Hospitalist ROS - Medication Medications: Active Medications Generic Name Dose Route Start Last Admin Trade Name Freq PRN Reason Stop Dose Admin Acetazolamide 500 mg 10/07/19 21:00 10/08/19 08:53 Diamox PO 10/09/19 21:01 500 mg BID NATALIA Administration Aspirin 81 mg 10/02/19 09:00 10/08/19 08:53 Ecotrin PO 81 mg DAILY NATALIA Administration Digoxin 0.125 mg 10/02/19 09:00 10/06/19 08:09 Lanoxin PO 0.125 mg MoTuWeThFr NATALIA Administration Enoxaparin Sodium 40 mg 10/02/19 09:00 10/08/19 08:52 Lovenox SC 40 mg 0900 NATALIA Administration Furosemide 40 mg 10/06/19 09:00 10/08/19 08:53 Lasix PO 40 mg QAM NATALIA Administration Metoprolol Tartrate 6.25 mg 10/04/19 21:00 10/08/19 08:53 Lopressor PO 6.25 mg BID NATALIA Administration Nystatin 0 gm 10/02/19 09:00 10/08/19 08:55 Mycostatin Powder TOP 1 applic DAILY NATALIA Administration Paroxetine HCl 37.5 mg 10/03/19 09:00 10/08/19 08:55 Paxil Cr PO 37.5 mg DAILY NATALIA Administration Sodium Chloride 10 ml 10/02/19 21:00 10/08/19 08:52 Flush - Normal Saline IVF 10 ml Q12HR NATALIA Administration Sodium Chloride 10 ml 10/02/19 12:13 10/05/19 05:47 Flush - Normal Saline IVF 10 ml PRN PRN Administration Saline Flush Trazodone HCl 200 mg 10/04/19 23:14 10/07/19 21:20 Desyrel PO 200 mg HS NATALIA Administration Warfarin Sodium 5 mg 10/03/19 17:00 10/07/19 16:39 Coumadin PO 5 mg 1700 NATALIA Administration - Exam General Appearance: NAD, awake alert Eye: PERRL ENT: normocephalic atraumatic Neck: supple Heart: RRR Respiratory: CTAB, normal chest expansion Gastrointestinal: soft, normal bowel sounds Neurological: no focal deficits Hosp A/P - Plan (1) Lethargic Code(s): R53.83 - OTHER FATIGUE Status: Acute Plan: Unclear if she is at baseline. Possibly due to underlying infection vs. hypoxia vs. dehydration. UA/UCx ordered. Repeat CXR given questionable infiltrate noted on initial CXR. (2) Mouth breathing Code(s): R06.5 - MOUTH BREATHING Status: Acute Plan: Mouth breathing, with slight increased work of breathing. Dusky appearance to fingertips. Sats low with NC off. I placed NC back on and Sats 90% on 2L. I increased O2 to 3L and sats improved to 96%. Obtain ABG. As above, repeat CXR. (3) Decompensated heart failure Code(s): I50.9 - HEART FAILURE, UNSPECIFIED Status: Acute Plan: Left pleural effusion on CXR, she was started on Lasix 20 mg BID IV. 2+ edema, continue diuretics. BNP 700s. (4) Atrial fibrillation Code(s): I48.91 - UNSPECIFIED ATRIAL FIBRILLATION Status: Chronic Plan: Initially came in with afib RVR, she has resumed digoxin which she takes at home. HR in 80s. - on coumadin--therapeutic. (5) Elevated troponin Code(s): R79.89 - OTHER SPECIFIED ABNORMAL FINDINGS OF BLOOD CHEMISTRY Status : Acute Plan: Continue to trend troponin. Continue cardiac monitoring. patient without any chest pain. (6) Leukocytosis Code(s): D72.829 - ELEVATED WHITE BLOOD CELL COUNT, UNSPECIFIED Status: Acute Plan: Repeat CXR to assess questionable infiltrate seen on initial CXR. UA/UCx. Check lactic acid (7) CAD (coronary artery disease) Code(s): I25.10 - ATHSCL HEART DISEASE OF [place] CORONARY ARTERY W/O ANG PCTRS Status: Chronic off IV diuresis. -echo eF 60% LAD, no aort insuff. -lasix PO chronic meta alkalosis - d/t being on chr diuretics - will give diamox, as she needs little more diuresis. -->completed. Mild hypocalcemia -replace along w.. K. - give few doses of diamox -am labs repeating the lytes incl mag. -am albs. hold dc orders rehab placement pending. COVID neg.
[2019-10-08 14:10] LABS: Anion Gap 8 mmol/L (10-20); BUN (Urea Nitrogen) 17 mg/dL (9.8-20.1); Calc. Creatinine Clearance 77 mL/min (70-130); Calcium 9.3 mg/dL (7.8-10.44); Carbon Dioxide 27 mmol/L (23-31); Chloride 103 mmol/L (98-107); Estimated GFR-MDRD 60; Glucose 147 mg/dL (83-110); Potassium 3.3 mmol/L (3.5-5.1); Sodium 135 mmol/L (136-145)
[2019-10-08] MEDS: Warfarin Sodium 5 MG TAB PO SCH (17:08)
[2019-10-08] MEDS: traZODone HCl 50 MG TAB PO SCH (20:34)
[2019-10-09 04:34] LABS: INR-International Normal Ratio 2.7; PTT 37.2 sec (22.9-36.1); Prothrombin Time 28.3 sec (12.0-14.7)
[2019-10-09 05:31] LABS: Anion Gap 10 mmol/L (10-20); BUN (Urea Nitrogen) 20 mg/dL (9.8-20.1); Calc. Creatinine Clearance 80 mL/min (70-130); Calcium 9.2 mg/dL (7.8-10.44); Carbon Dioxide 25 mmol/L (23-31); Chloride 106 mmol/L (98-107); Estimated GFR-MDRD 63; Glucose 116 mg/dL (83-110); Potassium 3.2 mmol/L (3.5-5.1); Sodium 138 mmol/L (136-145)
[2019-10-09] MEDS ORDERED: Potassium Chloride 20 MEQ TAB PO SCH (08:30)
[2019-10-09] MEDS: Metoprolol Tartrate 25 MG TAB PO SCH (08:33)
[2019-10-09] MEDS: Aspirin 81 mg Enteric Coated Tablet PO SCH (08:33)
[2019-10-09] MEDS: Furosemide 40 MG TAB PO SCH (08:33)
[2019-10-09] MEDS: PARoxetine CR 12.5 MG TAB PO SCH (08:34)
[2019-10-09] MEDS: Enoxaparin Sodium 40 MG/0.4 ML SYRINGE SC SCH (08:36)
[2019-10-09] MEDS: Digoxin 0.125 MG TAB PO SCH (08:40)
[2019-10-09] MEDS: Nystatin Powder 15 GM BOT TOP SCH (08:41)
[2019-10-09 09:24] LABS: Hemoglobin 14.7 g/dL (12.0-16.0); Platelet Count 140 thou/uL (130-400)
[2019-10-09 09:28] LABS: INR-International Normal Ratio 2.9; Prothrombin Time 30.2 sec (12.0-14.7)
--- NOTE | 2019-10-09 11:42 | PDOC.HOSPP ---
- Subjective Encounter Date: 10/09/19 Encounter Time: 09:00 Subjective: Patient seen and examined bedside today, no overnight event, no new complaint, patient reports that she does not have any bowel movement since he is admitted here in the hospital, patient denies any nausea vomiting today - Objective Vital Signs & Weight: Vital Signs (12 hours) Temp Pulse Pulse Pulse Resp BP BP 10/09/19 11:12 98.4 F 96 19 10/09/19 09:17 72 104 H 134/60 105/55 L 10/09/19 07:16 98.5 F 87 16 10/09/19 04:01 98.5 F 72 16 BP Pulse Ox Pulse Ox Pulse Ox 10/09/19 11:12 126/63 94 L 10/09/19 09:17 95 95 10/09/19 07:16 122/61 93 L 10/09/19 04:01 107/58 L 94 L Weight Weight 192 lb 6.4 oz I&O: 10/08/19 10/09/19 10/10/19 06:59 06:59 06:59 Intake Total 1600 758 Output Total 1650 1200 Balance -50 -442 Result Diagrams: 10/09/19 09:00 10/09/19 04:04 Radiology Reviewed by me: Yes (All radiological investigations reviewed) EKG Reviewed by me: Yes Hospitalist ROS - Review of Systems Constitutional: denies: fever, chills, sweats, weakness, malaise, other ENT: denies: ear pain, ear discharge, nose pain, nose discharge, nose congestion , mouth pain, mouth swelling, throat pain, throat swelling, other Respiratory: denies: cough, dry, shortness of breath, hemoptysis, SOB with excertion, pleuritic pain, sputum, wheezing, other Cardiovascular: denies: chest pain, palpitations, orthopnea, paroxysmal noc. dyspnea, edema, light headedness, other Gastrointestinal: reports: constipation. denies: nausea, vomiting, abdominal pain, diarrhea, melena, hematochezia, other Genitourinary: denies: dysuria, frequency, incontinence, hematuria, retention, other Musculoskeletal: denies: neck pain, shoulder pain, arm pain, back pain, hand pain, leg pain, foot pain, other - Medication Medications: Active Medications Generic Name Dose Route Start Last Admin Trade Name Freq PRN Reason Stop Dose Admin Aspirin 81 mg 10/02/19 09:00 10/09/19 08:33 Ecotrin PO 81 mg DAILY NATALIA Administration Digoxin 0.125 mg 10/02/19 09:00 10/09/19 08:40 Lanoxin PO 0.125 mg MoTuWeThFr NATALIA Administration Enoxaparin Sodium 40 mg 10/02/19 09:00 10/09/19 08:36 Lovenox SC 40 mg 0900 NATALIA Administration Furosemide 40 mg 10/06/19 09:00 10/09/19 08:33 Lasix PO 40 mg QAM NATALIA Administration Metoprolol Tartrate 6.25 mg 10/04/19 21:00 10/09/19 08:33 Lopressor PO 6.25 mg BID NATALIA Administration Nystatin 0 gm 10/02/19 09:00 10/09/19 08:41 Mycostatin Powder TOP 1 applic DAILY NATALIA Administration Paroxetine HCl 37.5 mg 10/03/19 09:00 10/09/19 08:34 Paxil Cr PO 37.5 mg DAILY NATALIA Administration Sodium Chloride 10 ml 10/02/19 21:00 10/09/19 08:41 Flush - Normal Saline IVF 10 ml Q12HR NATALIA Administration Sodium Chloride 10 ml 10/02/19 12:13 10/05/19 05:47 Flush - Normal Saline IVF 10 ml PRN PRN Administration Saline Flush Trazodone HCl 50 mg 10/08/19 21:00 10/08/19 20:34 Desyrel PO 50 mg HS NATALIA Administration Warfarin Sodium 5 mg 10/03/19 17:00 10/08/19 17:08 Coumadin PO 5 mg 1700 NATALIA Administration - Exam General Appearance: NAD, awake alert Eye: PERRL, anicteric sclera ENT: normocephalic atraumatic, no oropharyngeal lesions Neck: supple, symmetric, no JVD, no thyromegaly Heart: no murmur, no gallops, no rubs, irregular Respiratory: CTAB, no wheezes, no rales, no ronchi Gastrointestinal: soft, non-tender, non-distended, normal bowel sounds Extremities: no cyanosis, no clubbing Skin: normal turgor, no lesions Neurological: no focal deficits Musculoskeletal: normal tone, normal strength Psychiatric: normal affect, normal behavior Hosp A/P - Plan 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 one-time dose Medications reviewed and continue provide symptomatic and supportive care
[2019-10-09] MEDS ORDERED: Bisacodyl 10 MG SUPP PR SCH (11:45)
[2019-10-09] MEDS ORDERED: Metoprolol Tartrate 25 MG TAB PO SCH ×3 (13:48→21:00)
[2019-10-09] MEDS ORDERED: Zolpidem Tartrate 5 MG TAB PO PRN (14:41)
[2019-10-09] MEDS ORDERED: Sodium Chloride 0.65% Nasal 44 ML BOT EA NARE PRN (14:41)
[2019-10-09] MEDS ORDERED: Senokot S 8.6-50 MG TAB PO PRN (14:41)
[2019-10-09] MEDS ORDERED: Labetalol HCl 100 MG/20 ML VIAL SLOW IVP PRN (14:41)
[2019-10-09] MEDS ORDERED: Diabetic Tussin 200 MG/10 ML UDCUP PO PRN (14:41)
[2019-10-09] MEDS ORDERED: Loperamide HCl 2 MG CAP PO PRN (14:41)
[2019-10-09] MEDS ORDERED: Bisacodyl 10 MG SUPP PR PRN (14:41)
[2019-10-09] MEDS ORDERED: Ondansetron PF 4 MG/2 ML Vial IVP PRN (14:41)
[2019-10-09] MEDS ORDERED: Ondansetron ODT 4 MG TAB PO PRN (14:41)
[2019-10-09 14:58] LABS: Hemoglobin 13.8 g/dL (12.0-16.0); Platelet Count 162 thou/uL (130-400)
--- NOTE | 2019-10-09 14:58 | PQF ---
CLINICAL DOCUMENTATION CLARIFICATION FORM: Patient Name: SAM IVEY Date of : 1945 Account: [id number] Admit Date: 10/02/2019 Facility: [facility] - [place] [address] Dr. Thorpe Date: 10/09/2019 Please exercise your independent, professional judgment in responding to the clarification form. Clinical indicators are provided on the bottom of this form for your review. Please check appropriate box(es) to clarify if the following diagnosis has been ruled in our ruled out: Pneumonia [ ] Ruled in diagnosis [ ] Continue to treat [ ] Resolved [ x ] Ruled out diagnosis [ ] Improving [ ] Cannot rule out diagnosis [ ] Other diagnosis [ ] Unable to determine In addition, please specify: Present on Admission (POA): [ ] Yes [ x ] No [ ] Unable to determine For continuity of documentation, please document condition throughout progress notes and discharge summary. Thank You. To be completed by CDI/Coding staff for physician review: CLINICAL INDICATORS - SIGNS / SYMPTOMS / LABS / RESULTS AND LOCATION IN MR ER Record 10/01: Doctor Notes: She had evidence for pneumonia on the chest x- ray. ER diagnosis additional: Sepsis from pneumonia 10/01 Siiva: A/P: Repeat CXR to assess questionable infiltrate seen on initial CXR 10/03 (Gurusamy) A/P: Decompensated heart failure . Left pleural effusion on CXR, RISK FACTORS / RESULTS AND LOCATION IN MR H&P 10/01 Mar: 74 yo with PMH AFIB, CAD, CHF. A/P: Leukocytosis TREATMENTS / RESULTS AND LOCATION IN MR 10/01 Siiva: A/P: Repeat CXR to assess questionable infiltrate seen on initial CXR Order 10/01-10/03: Rocephin 1gm IV q 24hr Thank you, Lianna Gregorio RN, BSN [email or web address] This is a permanent part of the Medical Record [facility]
[2019-10-09] MEDS: Sodium Chloride 0.9% 500 ML IV SCH ×2 (15:07→19:00)
[2019-10-09] MEDS ORDERED: Phytonadione 5 MG in Sodium Chloride 0.9% 50 ML IVPB SCH (18:30)
[2019-10-09 18:32] LABS: #Basophils 0.2 thou/uL (0.0-0.2); #Eosinphils 0.1 thou/uL (0.0-0.7); #Lymphocytes 2.3 thou/uL (1.20-3.40); #Monocytes 0.8 thou/uL (0.11-0.59); #Neutrophils 8.9 thou/uL (1.40-6.50); %Basophils 1.4 % (0.0-1.0); %Eosinophils 0.6 % (0.0-10.0); %Lymphocytes 18.6 % (21.0-51.0); %Monocytes 6.7 % (0.0-10.0); %Neutrophils 72.7 % (42.0-75.0); Hemoglobin 11.8 g/dL (12.0-16.0); Mean Corpuscular HGB CONC 32.2 g/dL (32.0-36.0); Mean Corpuscular Hemoglobin 31.1 pg (27.0-31.0); Mean Corpuscular Volume 96.4 fL (78.0-98.0); Mean Platelet Volume 9.6 fL (7.4-10.4); Platelet Count 192 thou/uL (130-400); RBC Distribution Width 14.7 % (11.5-14.5); Red Blood Cell (RBC) Count 3.79 mill/uL (4.20-5.40); White Blood Cell (WBC) Count 12.2 thou/uL (4.8-10.8)
[2019-10-09 18:38] LABS: INR-International Normal Ratio 3.3; PTT 39.3 sec (22.9-36.1); Prothrombin Time 32.9 sec (12.0-14.7)
--- NOTE | 2019-10-09 18:51 | PDOC.EVN ---
Event Note - Event Note Event Note: Responded to code green Patient seen and examined. Had massive bloody BM. BP low on arrival, 60's. Added bolus 1L NS. BP improved to 99 SBP. Patient talking and alert. Start Protonix drip. On Coumadin for Afib, reverse INR with 2 of FFP and 5mg of Vit K. Upgrade to IMCU. Will have patient seen by GI.
[2019-10-09 18:55] LABS: ALT (SGPT) 28 U/L (8-55); AST (SGOT) 22 U/L (5-34); Albumin 2.9 g/dL (3.4-4.8); Alkaline Phosphatase 72 U/L (40-110); Anion Gap 14 mmol/L (10-20); BUN (Urea Nitrogen) 66 mg/dL (9.8-20.1); Bilirubin, Total 0.7 mg/dL (0.2-1.2); Calc. Creatinine Clearance 53 mL/min (70-130); Calcium 8.7 mg/dL (7.8-10.44); Carbon Dioxide 20 mmol/L (23-31); Chloride 109 mmol/L (98-107); Estimated GFR-MDRD 40; Globulin 2.2 g/dL (2.4-3.5); Glucose 176 mg/dL (83-110); Potassium 5.1 mmol/L (3.5-5.1); Protein, Total 5.1 g/dL (6.0-8.3); Sodium 138 mmol/L (136-145)
[2019-10-09] MEDS ORDERED: Sodium Chloride 0.9% 1,000 ML IV SCH (19:00)
[2019-10-09] MEDS: Pantoprazole 80 MG in Sodium Chloride 0.9% 100 ML IVPB SCH (20:56)
[2019-10-09] MEDS: traZODone HCl 50 MG TAB PO SCH (20:58)
[2019-10-09] MEDS ORDERED: Pantoprazole 40 MG VIAL IVP SCH (21:00)
[2019-10-10 00:25] LABS: INR-International Normal Ratio 1.3; PTT 32.6 sec (22.9-36.1); Prothrombin Time 16.6 sec (12.0-14.7)
[2019-10-10] MEDS ORDERED: Sodium Chloride 0.9% 500 ML IV SCH (03:30)
[2019-10-10] MEDS: Sodium Chloride 0.9% 1,000 ML IV SCH ×2 (03:37→15:55)
[2019-10-10 04:30] LABS: INR-International Normal Ratio 1.4; PTT 32.9 sec (22.9-36.1); Prothrombin Time 17.1 sec (12.0-14.7)
[2019-10-10 04:33] LABS: #Basophils 0.1 thou/uL (0.0-0.2); #Lymphocytes 1.8 thou/uL (1.20-3.40); #Monocytes 0.7 thou/uL (0.11-0.59); #Neutrophils 11.2 thou/uL (1.40-6.50); %Basophils 0.6 % (0.0-1.0); %Eosinophils 0.2 % (0.0-10.0); %Lymphocytes 12.9 % (21.0-51.0); %Monocytes 5.1 % (0.0-10.0); %Neutrophils 81.2 % (42.0-75.0); Hemoglobin 7.6 g/dL (12.0-16.0); Mean Corpuscular HGB CONC 33.7 g/dL (32.0-36.0); Mean Corpuscular Hemoglobin 32.4 pg (27.0-31.0); Mean Corpuscular Volume 96.3 fL (78.0-98.0); Mean Platelet Volume 9.5 fL (7.4-10.4); Platelet Count 165 thou/uL (130-400); RBC Distribution Width 14.9 % (11.5-14.5); Red Blood Cell (RBC) Count 2.35 mill/uL (4.20-5.40); White Blood Cell (WBC) Count 13.8 thou/uL (4.8-10.8)
[2019-10-10 04:43] LABS: Anion Gap 13 mmol/L (10-20); BUN (Urea Nitrogen) 78 mg/dL (9.8-20.1); Calc. Creatinine Clearance 57 mL/min (70-130); Calcium 8.1 mg/dL (7.8-10.44); Carbon Dioxide 19 mmol/L (23-31); Chloride 111 mmol/L (98-107); Estimated GFR-MDRD 43; Glucose 154 mg/dL (83-110); Potassium 4.2 mmol/L (3.5-5.1); Sodium 139 mmol/L (136-145)
[2019-10-10] MEDS: Pantoprazole 80 MG in Sodium Chloride 0.9% 100 ML IVPB SCH (05:52)
[2019-10-10 07:09] LABS: Hemoglobin 7.8 g/dL (12.0-16.0)
[2019-10-10] MEDS ORDERED: diphenhydrAMINE 50 MG/ML VIAL IVP PRN (08:24)
[2019-10-10] MEDS ORDERED: Acetaminophen 650 MG Suppository PR PRN (08:24)
[2019-10-10] MEDS ORDERED: Calcium Carbonate 500 MG ChewTAB PO PRN (08:24)
[2019-10-10] MEDS ORDERED: Acetaminophen 500 MG TAB PO PRN (08:24)
[2019-10-10] MEDS ORDERED: Cepastat Lozenges 1 LOZ PO PRN (08:24)
[2019-10-10] MEDS ORDERED: Acetaminophen 325 MG TAB PO PRN (08:41)
[2019-10-10] MEDS: PARoxetine CR 12.5 MG TAB PO SCH (10:12)
[2019-10-10] MEDS: Digoxin 0.5 MG/2 ML AMP SLOW IVP SCH (10:12)
[2019-10-10] MEDS: Nystatin Powder 15 GM BOT TOP SCH (10:13)
[2019-10-10 10:18] LABS: INR-International Normal Ratio 1.1; Prothrombin Time 14.6 sec (12.0-14.7)
[2019-10-10] MEDS ORDERED: Digoxin 0.5 MG/2 ML AMP SLOW IVP SCH (10:45)
--- NOTE | 2019-10-10 11:38 | RAD ---
EXAM: Chest one view: HISTORY: COPD COMPARISON: 10/02/2019 FINDINGS: Improved pleural and parenchymal opacity changes in the left base. Minimally improved bilateral vascu lar congestion. Heart size: Within normal limits. Lungs: Clear of acute process. No evidence for confluent pneumonia, pleural effusion, acute edema, or pneumothorax, or other signifi cant acute process. IMPRESSION: Improvement in the previously noted pleural and parenchymal opacity changes in the left base and prio r vascular congestion. Atherosclerosis of the aorta.
--- NOTE | 2019-10-10 12:42 | PDOC.HOSPP ---
- Subjective Encounter Date: 10/10/19 Encounter Time: 08:20 Subjective: This morning patient is feeling weak, patient has A. fib with RVR, patient has drop in hemoglobin, patient also had low blood pressure yesterday required IMCU transfer, patient has received FFP, - Objective Vital Signs & Weight: Vital Signs (12 hours) Temp Pulse 10/10/19 11:46 108 H 10/10/19 11:25 98.1 F 10/10/19 10:12 89 10/10/19 07:19 98.6 F 10/10/19 04:07 97.6 F Weight Weight 190 lb 14.4 oz Most Recent Monitor Data Heart Rate from ECG 121 NIBP 112/85 NIBP BP-Mean 94 Respiration from ECG 23 SpO2 100 I&O: 10/09/19 10/10/19 10/11/19 06:59 06:59 06:59 Intake Total 758 3386 0 Output Total 1200 550 Balance -442 2836 0 Result Diagrams: 10/10/19 06:48 10/10/19 04:06 Additional Labs: Accuchecks 10/09/19 18:19 POC Glucose 176 H EKG Reviewed by me: Yes (A. fib with RVR) Hospitalist ROS - Review of Systems Constitutional: reports: weakness, malaise. denies: fever, chills, sweats, other ENT: denies: ear pain, ear discharge, nose pain, nose discharge, nose congestion , mouth pain, mouth swelling, throat pain, throat swelling, other Respiratory: denies: cough, dry, shortness of breath, hemoptysis, SOB with excertion, pleuritic pain, sputum, wheezing, other Cardiovascular: denies: chest pain, palpitations, orthopnea, paroxysmal noc. dyspnea, edema, light headedness, other Gastrointestinal: reports: melena, hematochezia. denies: nausea, vomiting, abdominal pain, diarrhea, constipation, other Genitourinary: denies: dysuria, frequency, incontinence, hematuria, retention, other Musculoskeletal: denies: neck pain, shoulder pain, arm pain, back pain, hand pain, leg pain, foot pain, other - Medication Medications: Active Medications Generic Name Dose Route Start Last Admin Trade Name Freq PRN Reason Stop Dose Admin Digoxin 0.125 mg 10/10/19 09:00 10/10/19 10:12 Lanoxin SLOW IVP 0.125 mg DAILY NATALIA Administration Pantoprazole Sodium 80 mg/ 100 mls @ 10 mls/hr 10/09/19 19:00 10/10/19 05:52 Sodium Chloride IVPB 100 mls INF NATALIA Administration Sodium Chloride 1,000 mls @ 100 mls/hr 10/10/19 04:00 10/10/19 03:37 Normal Saline 0.9% IV 1,000 mls .Q10H NATALIA Administration Nystatin 0 gm 10/02/19 09:00 10/10/19 10:13 Mycostatin Powder TOP 1 applic DAILY NATALIA Administration Paroxetine HCl 37.5 mg 10/03/19 09:00 10/10/19 10:12 Paxil Cr PO 37.5 mg DAILY NATALIA Administration Sodium Chloride 10 ml 10/02/19 21:00 10/10/19 10:13 Flush - Normal Saline IVF 10 ml Q12HR NATALIA Administration Sodium Chloride 10 ml 10/02/19 12:13 10/05/19 05:47 Flush - Normal Saline IVF 10 ml PRN PRN Administration Saline Flush Trazodone HCl 50 mg 10/08/19 21:00 10/09/19 20:58 Desyrel PO Not Given HS NATALIA - Exam General Appearance: NAD, awake alert Eye: PERRL, anicteric sclera ENT: normocephalic atraumatic, no oropharyngeal lesions Neck: supple, symmetric, no JVD Heart: no murmur, no gallops, no rubs, irregular Respiratory: CTAB, no wheezes, no rales Gastrointestinal: soft, non-tender, non-distended, normal bowel sounds Extremities: no cyanosis, no clubbing Skin: normal turgor, no lesions Neurological: no new deficit Musculoskeletal: normal tone, normal strength Psychiatric: normal affect, normal behavior Hosp A/P - Plan old records reviewed/req Assessment Acute on chronic diastolic congestive heart failure Acute GI bleed Anemia due to acute blood loss Hemorrhagic shock due to GI bleed Acute kidney injury Atrial fibrillation with rapid ventricular response Chronic anticoagulation Constipation, resolved Leukocytosis resolved Hypokalemia, corrected Physical deconditioning Plan Patient has received FFP and vitamin K and her coagulopathy has been reversed due to acute GI bleed Patient has received IV fluid and her blood pressure has improved Today we will give her 1 unit of PRBC Continue IV Protonix drip Gastroenterology has been consulted for evaluation with upper endoscopy Regarding atrial fibrillation with RVR we will give her digoxin 0.25 mg IV one- time dose now and will consult cardiology for their opinion We will repeat labs tomorrow including digoxin level We will closely monitor in IMCU Medication reviewed and continued by symptomatic and supportive care.
--- NOTE | 2019-10-10 12:50 | CON ---
DATE OF CONSULTATION: HISTORY OF PRESENT ILLNESS: Amy Yo is a 74-year-old female, who was transferred last night at 2200 hours following an episode of code green and hypertension. Blood pressure was 82/66, saturations are 95% on room air, respiratory rate 20. She had bloody stool. GI has been consulted this morning. Pulmonary is being consulted since she is in the MICU. The patient has been in the hospital since the almost a week. Her initial presentation was that of a residential. CPAP at nighttime for sleep apnea. She had bleeding from the ureter, CHF diagnosis, atrial fibrillation. PAST MEDICAL HISTORY: Atrial fibrillation, sleep apnea, congestive heart failure, COPD. PREVIOUS SURGERIES: Include hysterectomy, appendix, cholecystectomy, D and C. ALLERGIES: MULTIPLE INCLUDING HYDROCORTISONE, CORTISONE, ATIVAN. HOME MEDICATIONS: 1. Trazodone 200. 2. Coumadin 5. 3. Digoxin 125. 4. Vitamin C (ascorbic acid). 5. Metoprolol 12.5. 6. Lasix 40. SOCIAL HISTORY: Tobacco and alcohol, none. REVIEW OF SYSTEMS: Otherwise, negative. PHYSICAL EXAMINATION: VITAL SIGNS: Pulse 89, blood pressure 122/85, saturations 100%. GENERAL: She is awake, responsive. She had a bloody stool as per the nurses. CHEST: No wheezing. No crackles. CARDIAC: Normal S1 and S2. No gallops. ABDOMEN: No masses. LABORATORY DATA: H and H are 7 and 28. INR is normal. ASSESSMENT: 1. Renal function is abnormal. BUN is 78, creatinine 1.2. Some of this is probably dehydration. 2. Gastrointestinal bleed. 3. Hypertension. 4. Atrial fibrillation. Apparently, sleep apnea at home. Needs gastrointestinal input right away. She probably needs to be transfused. She can continue home CPAP as tolerated, though she appears to be in no distress. I am going to get an order of baseline chest x-ray. Consultation note, 70 minutes, 50% direct patient care. Job ID: [id number]
[2019-10-10] MEDS ORDERED: GoLYTELY 4,000 ml Bottle PO SCH (16:45)
[2019-10-10 18:16] LABS: Hemoglobin 8.6 g/dL (12.0-16.0)
[2019-10-10] MEDS: traZODone HCl 50 MG TAB PO SCH (23:46)
--- NOTE | 2019-10-11 00:58 | CON ---
DATE OF CONSULTATION: 10/10/2019 REASON FOR CONSULTATION: Hematochezia. CONSULTING PROVIDER: Cruz Cedillo DO HISTORY OF PRESENT ILLNESS: The patient is a 74-year-old female with past medical history of coronary artery disease, congestive heart failure, atrial fibrillation, obstructive sleep apnea, and COPD, who was initially admitted to the hospital with complaints of increased shortness of breath and altered mental status. During the course of this hospitalization, the patient was noted to have a probable acute exacerbation of her congestive heart failure as evidenced by a left pleural effusion on chest x-ray and was started on diuretic management. She was also noted to have atrial fibrillation with rapid ventricular response on admission, but this had been adequately managed with medical management and had resumed her digoxin as well as her outpatient Coumadin for this particular condition. However, last night, the patient had a code green called due to increasing altered mental status as well as hypotension with the hypertensive episode. She was then suddenly noted to have a large amount of hematochezia, characterized as both bright red blood and maroon-colored stools. With this hypotension and hematochezia, she was ultimately transferred to the [facility] for escalation of care and further management of this condition. During the course of the day today, nursing staff states that she continues to have repeated episodes of hematochezia that are more maroonish in coloration. However, she has not had any further episodes of hypotension since last night, and with titration of her digoxin, her RVR is no longer present. Currently, she states that she is feeling a little bit better, but just feels sick. Currently, she denies any nausea, vomiting, fevers, chills, hematemesis, dysphagia, or odynophagia. REVIEW OF SYSTEMS: A 10-category review of systems was obtained with all responses negative except for the pertinent positives as listed in HPI. PAST MEDICAL HISTORY: As per HPI. PAST SURGICAL HISTORY: Hysterectomy, appendectomy, cholecystectomy, and D and C. FAMILY HISTORY: Denies any GI malignancies. SOCIAL HISTORY: No mention of tobacco, alcohol, or illicit drug use in the chart. OUTPATIENT MEDICATIONS: Reviewed. ALLERGIES: HYDROCORTISONE, CORTISONE, ATIVAN, AND SULFA. PHYSICAL EXAMINATION: VITAL SIGNS: Temperature 98.8, pulse 108, blood pressure 112/85, respiratory rate 23, and saturating 100% on room air. GENERAL: The patient was lying in bed, in no acute distress. Alert and oriented x3. HEENT: Normocephalic and atraumatic. NECK: Supple. No scleral icterus noted. CARDIOVASCULAR: Tachycardic rate with irregularly irregular rhythm. There were no discernible murmurs, gallops, or rubs. RESPIRATORY: Clear to auscultation bilaterally, but with diminished breath sounds in the left lower lobe. ABDOMEN: Normoactive bowel sounds. Soft, nondistended. Tenderness to palpation in the midepigastric and periumbilical regions. EXTREMITIES: No cyanosis or clubbing. 1+/2+ bilateral lower extremity edema was noted up to mid gallegos. LABORATORY DATA: CBC with a white blood cell count of 13.8, hemoglobin 7.6, hematocrit 22.6. Glucose 165. INR 1.1. Chemistry with a sodium of 139, potassium 4.2, chloride 111, CO2 of 19, BUN 78, creatinine 1.22, glucose 154. IMAGING DATA: Chest x-ray was obtained on October 10, 2019, which showed improvement in the previously noted pleural and parenchymal opacity changes in the left base and prior vascular congestion. ASSESSMENT AND PLAN: The patient is a 74-year-old female with past medical history of coronary artery disease, congestive heart failure, atrial fibrillation with rapid ventricular response, obstructive sleep apnea, and chronic obstructive pulmonary disease, initially presenting with an acute exacerbation of her chronic heart failure in addition to atrial fibrillation with rapid ventricular response, now presenting with hematochezia. Hematochezia: The patient was initially admitted to the hospital for complaints of increased shortness of breath and altered mental status and diagnosed with a probable urinary tract infection, acute exacerbation of her congestive heart failure as well as atrial fibrillation with rapid ventricular response. She responded well to medical management and was in the process of being possibly discharged home when she had an acute episode of hypotension associated with a large bloody bowel movement last night. She was subsequently transferred to the [facility] and during the course of the day, has continued to have a mix between bright red bloody bowel movements and maroon-colored bowel movements. At this time, localization of her bleeding source is unclear, especially given that her BUN to creatinine ratio has significantly elevated, which could point more toward an upper gastrointestinal bleed. However, with the maroon-colored stools, it could be either an upper or lower gastrointestinal bleed contributing to significant hypotension last night. Currently, the differential includes peptic ulcer disease, arteriovenous malformation, Dieulafoy lesion, gastritis, duodenitis (made worse with Coumadin administration), diverticular bleed, ischemic colitis made worse with anticoagulation and/or gastrointestinal neoplasm. RECOMMENDATIONS: 1. Would continue to trend her H and H and transfuse as necessary to maintain an H and H of 7/21. 2. Continue to monitor clinically for signs of active GI bleeding. 3. Would place the patient on a clear liquid diet today with plans for GoLYTELY prep tonight and EGD and colonoscopy tomorrow. 4. If the patient exhibits increased bleeding or blood loss in addition to hypotension, then we would perform rapid prep tonight with an expedited EGD and colonoscopy tonight. 5. Would avoid any anticoagulation for the time being. I agree with reversal of the Coumadin with vitamin K. 6. Further recommendations to follow EGD and colonoscopy. 7. Would continue the patient on PPI drip for the time being until after the endoscopies. We will continue to follow. Please call with any questions. Job ID: [id number]
[2019-10-11] MEDS: Sodium Chloride 0.9% 1,000 ML IV SCH ×3 (01:24→17:50)
[2019-10-11 04:00] LABS: #Basophils 0.1 thou/uL (0.0-0.2); #Eosinphils 0.1 thou/uL (0.0-0.7); #Lymphocytes 3.1 thou/uL (1.20-3.40); #Monocytes 0.8 thou/uL (0.11-0.59); #Neutrophils 10.1 thou/uL (1.40-6.50); %Basophils 0.5 % (0.0-1.0); %Eosinophils 0.6 % (0.0-10.0); %Lymphocytes 21.9 % (21.0-51.0); %Monocytes 5.7 % (0.0-10.0); %Neutrophils 71.4 % (42.0-75.0); Hemoglobin 7.2 g/dL (12.0-16.0); Mean Corpuscular HGB CONC 34.2 g/dL (32.0-36.0); Mean Corpuscular Hemoglobin 32.9 pg (27.0-31.0); Mean Corpuscular Volume 95.9 fL (78.0-98.0); Platelet Count 169 thou/uL (130-400); RBC Distribution Width 14.6 % (11.5-14.5); Red Blood Cell (RBC) Count 2.18 mill/uL (4.20-5.40); White Blood Cell (WBC) Count 14.1 thou/uL (4.8-10.8)
[2019-10-11 04:22] LABS: ALT (SGPT) 15 U/L (8-55); AST (SGOT) 11 U/L (5-34); Albumin 2.7 g/dL (3.4-4.8); Alkaline Phosphatase 64 U/L (40-110); Anion Gap 12 mmol/L (10-20); BUN (Urea Nitrogen) 63 mg/dL (9.8-20.1); Bilirubin, Total 0.5 mg/dL (0.2-1.2); Calc. Creatinine Clearance 72 mL/min (70-130); Calcium 8.4 mg/dL (7.8-10.44); Carbon Dioxide 21 mmol/L (23-31); Chloride 112 mmol/L (98-107); Estimated GFR-MDRD 56; Globulin 1.8 g/dL (2.4-3.5); Glucose 143 mg/dL (83-110); Potassium 3.7 mmol/L (3.5-5.1); Protein, Total 4.5 g/dL (6.0-8.3); Sodium 141 mmol/L (136-145)
[2019-10-11] MEDS: Pantoprazole 80 MG in Sodium Chloride 0.9% 100 ML IVPB SCH (04:24)
--- NOTE | 2019-10-11 08:52 | CON ---
DATE OF CONSULTATION: 10/10/2019 INDICATION FOR CONSULTATION: This is a very unfortunate 74-year-old female, who resides in a skilled nursing in [place]. She was transferred down to [facility] and eventually transferred to our hospital. I am unsure of the events which happened there, but she apparently has a history of congestive heart failure in the past. She has chronic atrial fibrillation. I cannot see whether she was on any medications in the past or not for her atrial fibrillation; however, I believe when she was admitted, her INR was elevated, making me believe that most likely she had been on some type of oral anticoagulation. Her INR was 2.3 and actually increased up to 3.5 while being in the hospital. Her INR is back down to 1.1. She was admitted due to increasing shortness of breath, some history according to the records of hypoxia and confusion. She also had some lower extremity edema. When she arrived, her first set of cardiac enzymes showed a troponin I which was slightly elevated, but the subsequent two are unremarkable and obviously negative for myocardial infarction. The elevated first set may be due to the dyspnea or the CHF exacerbation I am uncertain exactly what happened in the events, this was a week ago. Since being in the hospital, yesterday, the patient did have another event where she became more short of breath, she became hypotensive, had a large bowel movement which was bloody, and has dropped her hemoglobin from an admitting hemoglobin, I believe was 16.6 down to a hemoglobin of 7.6. She has been given transfusions. She has been placed on digoxin for her chronic atrial fibrillation. She underwent an echocardiogram, which showed atrial fibrillation as well as ejection fraction of 55% to 60% with moderate mitral valve regurgitation, mild TV valve regurgitation and some mild aortic valve sclerosis. Otherwise, the ejection fraction has been normal. She has had no EKG changes to indicate ischemia. Her EKG did show atrial fibrillation with a left bundle-branch block , but no acute ST-segment changes were noted, and she is a very poor historian. She is still confused. She thinks she is going to live with her daughter and she said that she had never heard of anything about having atrial fibrillation in the past, but did give me some other history saying that she has smoked 2 packs a day for more than 50 years, and if this is true, obviously this could lead to some of her shortness of breath, but chest x-ray on admission did show I believe some left lower lobe infiltrate as well as an effusion. At this time, we were asked to see her due to her atrial fibrillation and rapid ventricular response. It does appear that she may still be on the dry side with the BUN ratio being significantly elevated, but obviously the BUN will be increased due to her bleeding. She may be hypotensive due to volume loss also. We will need to transfuse the patient and give her transfusion. I would agree with continuing the digoxin. Renal function, however, we need to be careful since her creatinine is 1.22. Her potassium was stable at 4.2 and so she should be safe to get the digoxin, and also as soon as her blood pressure is stable, we will start her back on her routine beta-blockers. PAST MEDICAL HISTORY: Significant for the atrial fibrillation, some history in the past of coronary artery disease, I have no documentation of that. There is some history of CHF. She has had an appendectomy, cholecystectomy, and hysterectomy. I do not know where the diagnosis of CAD is from. There was no family available and the records do not indicate exactly what the underlying coronary artery disease may be. REVIEW OF SYSTEMS: Her 12-point review of systems is difficult to determine due to her confusion, but she did not offer up any other complaints, but did say that she had some lower extremity swelling in the past and has some shortness of breath. FAMILY HISTORY: her father had bypass surgery at age 42. We are unable to verify this. SOCIAL HISTORY: As noted above. She says she smoked about 2 packs a day for more than 50 years and says she stopped smoking about a month ago; however, I think she has lived in the skilled nursing for many years and whether or not she is smoking there is unclear. There is no history of alcohol use. PHYSICAL EXAMINATION: GENERAL: Reveals an elderly female. She appears to be comfortable. She is in no acute distress at this time. VITAL SIGNS: Blood pressure is 108/50. Heart rates in the one teens, shows atrial fibrillation. She is afebrile. Respiratory rate is about 14. HEENT: Shows head to be normocephalic and atraumatic. Carotid pulses are present. I did not hear any significant bruits. CHEST: Her chest actually appears to be clear. She has some minimal rales noted in the left base, but otherwise is clear. I did not hear any wheezing. CARDIOVASCULAR: Heart sounds are slightly distant, but she has an irregularly irregular heart rate. I did not hear any gross murmurs. ABDOMEN: Soft and there is no significant tenderness. I cannot palpate any masses. EXTREMITIES: No clubbing, cyanosis or edema at this time. Pedal pulses are present. NEUROLOGIC: There are no gross focal motor deficits noted except the patient does have apparently some dementia or is confused about the events. MUSCULOSKELETAL: Appears to be normal. SKIN: Warm and dry. LABORATORY DATA: At this time shows a sodium of 139, potassium was 4.2, chloride was 119, bicarb was 19, BUN was 78 with a creatinine of 1.22, and blood sugar 154. Digoxin level was 0.46. She did have a urinalysis with 2+ bacteria, but this appeared to be skin ashlee. Hemoglobin 7.8, hematocrit 22.8, WBC 13.8, and platelet count 165,000. INR is 1.1. IMPRESSION: Elderly female, who has a history of congestive heart failure, which appears to be diastolic most likely in nature. She has a history of atrial fibrillation, which she is unaware of, and also has some history of coronary artery disease. At this time, 1. Atrial fibrillation with a rapid ventricular response. I would agree with continuing the digoxin and would initiate beta-blockers in the form of metoprolol 25 mg once a day as soon as she is able to tolerate this medicine due to her hypotension. 2. Gastrointestinal bleed. This will need to be dealt with by the economic consultant obviously to ensure that she has no further bleeding. Obviously, she is not a candidate for Coumadin at this time. This medicine has been stopped earlier. 3. History of congestive heart failure. We will continue her medicines as they are at this time. She does not appear that she has any edema. In the future, she may need low-dose diuretics. 4. Some degree of renal insufficiency, which may be prerenal due to the BUN and creatinine ratio, but the BUN most likely is elevated due to the GI bleeding. 5. At this time, we would be more than happy to continue to follow the patient with you, but no further cardiac workup is indicated. We will just hopefully try to resume her medications as soon as the blood pressure becomes stable and she may need extra volume as well as blood. Job ID: [id number] [facility]
--- NOTE | 2019-10-11 09:53 | OP ---
DATE OF PROCEDURE: 10/11/2019 PROCEDURE: 1. Esophagogastroduodenoscopy with biopsy. 2. Incomplete colonoscopy. DESCRIPTION OF PROCEDURE: Written consents were obtained prior to procedure. After adequate sedation, the forward-viewing endoscope was advanced down the hypopharynx under direct vision to the third portion of duodenum. There were no signs of active bleeding noted. In the first portion of the duodenum, a 15 mm oval ulcer with deep crater was seen. However, the crater was clean without any visible vessel or adherent clot. There was no bleeding seen. The bulb appeared normal. The pylorus was patent. Erythema was noted diffuse in the gastric antrum. The body fundus and cardia appeared normal. Retroflexion showed a 2 cm hiatal hernia. Biopsies were obtained from the gastric antrum and body for H. pylori testing. The GE junction was noted at 40 cm from the incisors. The lower, mid, and upper esophagus appeared normal. The instrument was then fully removed. The patient was then repositioned for colonoscopy. Digital exam showed liquid black stools. Attempted endoscopy was made; however visualization was not possible, because of large amount of black liquid stool with actual stool sediments. The endoscope was attempted to advanced above the cecum. Numerous diverticula were also seen. Further advancement was not made, because of inability visualized in the colon, because of large amount of liquid black prep in stool. However, red blood or stool was not seen. The instruments were then fully removed. ASSESSMENT: 1. Large duodenal ulcer with clean crater, source of gastrointestinal bleeding, which appears to have stopped. 2. Incomplete colonoscopy, because of inability to visualize from large amount of retained black bowel prep in stool. RECOMMENDATION: 1. We will start on clear liquids. 2. Change pantoprazole to 40 mg IV q.12. 3. Continue close observation over the next 24 hours for any signs of rebleeding. 4. Trending blood count, transfuse if hemoglobin is less than 7 g/dL. Job ID: [id number]
[2019-10-11] MEDS ORDERED: PHENYLEPHRINE-NS 100 MCG/ML 10 ML SYRINGE ONE (10:39)
[2019-10-11] MEDS ORDERED: PROPOFOL 200 MG/20 ML VIAL ONE (10:39)
[2019-10-11] MEDS ORDERED: Lidocaine 1% PF 5 ML VIAL ONE (10:39)
--- NOTE | 2019-10-11 11:00 | PRG ---
DATE OF SERVICE: SUBJECTIVE: This morning, she has just come back from a procedure. OBJECTIVE: VITAL SIGNS: Temperature is 98, blood pressure 114/56, sats 98% on 2 L. GENERAL: She is responsive. CHEST: Decreased breath sounds. No wheezing. CARDIAC: Normal S1, S2. No gallops. LABORATORY DATA: H and H are platelet count 169. Lytes are normal. BUN and creatinine normal. ASSESSMENT: GI bleed, anemia, hypertension, encephalopathy, duodenal ulcer. PLAN: Disposition as per GI. Pulmonary will follow while in the MICU. Job ID: [id number]
[2019-10-11 12:25] LABS: INR-International Normal Ratio 1.1; Prothrombin Time 13.8 sec (12.0-14.7)
[2019-10-11] MEDS: Digoxin 0.5 MG/2 ML AMP SLOW IVP SCH (12:36)
[2019-10-11] MEDS: PARoxetine CR 12.5 MG TAB PO SCH (12:36)
[2019-10-11] MEDS: Nystatin Powder 15 GM BOT TOP SCH (12:37)
[2019-10-11 13:30] LABS: Platelet Count 160 thou/uL (130-400)
[2019-10-11] MEDS ORDERED: Furosemide 20 MG/2 ML VIAL SLOW IVP SCH (15:00)
--- NOTE | 2019-10-11 15:00 | PDOC.CPN ---
- Subjective Date: 10/11/19 Time: 15:09 Interval history: The pt seen and examined. No overnight events. No cardiac complaints. - Objective Allergies/Adverse Reactions: Allergies Allergy/AdvReac Type Severity Reaction Status Date / Time cortisone Allergy Verified 10/02/19 05:38 lorazepam [From Ativan] Allergy Verified 10/02/19 05:38 Sulfa (Sulfonamide Allergy Verified 10/02/19 05:38 Antibiotics) Visit Medications: Current Medications Acetaminophen (Tylenol) 650 mg [place] Q4H PRN PRN Reason: Fever > 101 Acetaminophen (Tylenol) 650 mg PO Q6H PRN PRN Reason: FEVER > 101 Hydrocodone Bitart/Acetaminophen ([place] 5/325) 1 tab PO Q4H PRN PRN Reason: Moderate Pain (4-6) Bisacodyl (Dulcolax) 10 mg [place] DAILYPRN PRN PRN Reason: Constipation Calcium Carbonate (Tums) 1,000 mg PO Q4H PRN PRN Reason: Heartburn or Indigestion Digoxin (Lanoxin) 0.125 mg SLOW IVP DAILY [facility] Last Admin: 10/11/19 12:36 Dose: 0.125 mg Diphenhydramine HCl (Benadryl) 25 mg IVP Q8H PRN PRN Reason: Itching & Hives (mild) Guaifenesin (Robitussin Sf) 200 mg PO Q4H PRN PRN Reason: Cough Sodium Chloride (Normal Saline 0.9%) 1,000 mls @ 100 mls/hr IV .Q10H [facility] Last Admin: 10/11/19 12:39 Dose: 1,000 mls Labetalol HCl (Normodyne) 10 mg SLOW IVP Q4H PRN PRN Reason: SBP > 180 and HR >/= 70 Loperamide HCl (Imodium) 2 mg PO PRN PRN PRN Reason: Diarrhea/Loose Stools Nystatin (Mycostatin Powder) 0 gm TOP DAILY [facility] Last Admin: 10/11/19 12:37 Dose: 1 applic Ondansetron HCl (Zofran Odt) 4 mg PO Q6H PRN PRN Reason: Nausea/Vomiting Ondansetron HCl (Zofran) 4 mg IVP Q6H PRN PRN Reason: Nausea/Vomiting Pantoprazole Sodium (Protonix) 40 mg IVP Q12HR [facility] Paroxetine HCl (Paxil Cr) 37.5 mg PO DAILY [facility] Last Admin: 10/11/19 12:36 Dose: 37.5 mg Senna/Docusate Sodium (Senokot S) 2 tab PO BIDPRN PRN PRN Reason: Constipation Sodium Chloride (Flush - Normal Saline) 10 ml IVF Q12HR [facility] Last Admin: 10/11/19 12:36 Dose: 10 ml Sodium Chloride (Flush - Normal Saline) 10 ml IVF PRN PRN PRN Reason: Saline Flush Last Admin: 10/05/19 05:47 Dose: 10 ml Sodium Chloride ([place] Nasal [place] 0.65%) 0 ml EA NARE QIDPRN PRN PRN Reason: Nasal Congestion Throat Lozenges (Cepastat Lozenges) 1 nora PO Q2H PRN PRN Reason: Sore Throat Trazodone HCl (Desyrel) 50 mg PO HS [facility] Last Admin: 10/10/19 23:46 Dose: Not Given Vital Signs & Weight: Vital Signs Temp Pulse Pulse Ox 10/11/19 12:36 108 H 10/11/19 11:21 98.6 F 10/11/19 08:00 95 10/11/19 07:33 98.6 F 10/11/19 03:41 97.5 F L Weight 190 lb 8 oz - Physical Exam General: other (self) Neck: supple neck Cardiac: irregularly regular Lungs: decreased breath sounds Extremities: no edema - Labs Result Diagrams: 10/11/19 13:22 10/11/19 03:23 Troponin/CKMB CK-MB (CK-2) 0.9 ng/mL (0-6.6) 10/02/19 01:15 Troponin I 0.013 ng/mL (< 0.028) 10/02/19 08:03 - Telemetry Supraventricular conduction: atrial fibrillation - Assessment/Plan Assessment/Plan: 1. Chronic Afib with RVR - well controlled HR; on Digoxin 0.125mg qd; not on OAC due to Anemia 2/2 GI bleed 2. GI bleed with large duodenal ulcer by EGD on 10/11/2019 - 3. Chronic Diastolic HF - Lasix 20mg IV x1 now and decrease NS from 100ml to 50ml/h; But has Hx of hypotension 4. Hx of CAD? - unclear; may need more information from [facility]. Not on Bblocker or LIBAN/ARB due to hypotension; not on ASA due to GI bleed 5. Anemia s with hx of 1 unit PRBC tx - will blood tx when Hgb <7.0 6. Ex-smoker, quit 08/2019? - MAR reviewed * Echo on 10/03/2019 with EF 55-60%, mild-mod LAE, mild WINSTON, mild MR
--- NOTE | 2019-10-11 15:39 | PDOC.HOSPP ---
- Subjective Encounter Date: 10/11/19 Subjective: Doing well post endoscopy. Tolerated procedure well. Denies any abdominal pain. No other complaints. - Objective Vital Signs & Weight: Vital Signs (12 hours) Temp Pulse Pulse Ox 10/11/19 15:12 98.8 F 10/11/19 12:36 108 H 10/11/19 11:21 98.6 F 10/11/19 08:00 95 10/11/19 07:33 98.6 F 10/11/19 03:41 97.5 F L Weight Weight 190 lb 8 oz Most Recent Monitor Data Heart Rate from ECG 104 NIBP 98/40 NIBP BP-Mean 59 Respiration from ECG 26 SpO2 93 I&O: 10/10/19 10/11/19 10/12/19 06:59 06:59 06:59 Intake Total 3386 3670 Output Total 550 200 Balance 2836 3470 Result Diagrams: 10/11/19 13:22 10/11/19 03:23 Hospitalist ROS - Medication Medications: Active Medications Generic Name Dose Route Start Last Admin Trade Name Freq PRN Reason Stop Dose Admin Digoxin 0.125 mg 10/10/19 09:00 10/11/19 12:36 Lanoxin SLOW IVP 0.125 mg DAILY [facility] Administration Nystatin 0 gm 10/02/19 09:00 10/11/19 12:37 Mycostatin Powder TOP 1 applic DAILY [facility] Administration Paroxetine HCl 37.5 mg 10/03/19 09:00 10/11/19 12:36 Paxil Cr PO 37.5 mg DAILY [facility] Administration Sodium Chloride 10 ml 10/02/19 21:00 10/11/19 12:36 Flush - Normal Saline IVF 10 ml Q12HR [facility] Administration Sodium Chloride 10 ml 10/02/19 12:13 10/05/19 05:47 Flush - Normal Saline IVF 10 ml PRN PRN Administration Saline Flush Trazodone HCl 50 mg 10/08/19 21:00 10/10/19 23:46 Desyrel PO Not Given HS NATALIA - Exam General Appearance: NAD, awake alert Heart: RRR, no murmur, no gallops, no rubs, normal peripheral pulses Respiratory: CTAB, no wheezes, no rales, no ronchi, normal chest expansion, no tachypnea, normal percussion Gastrointestinal: soft, non-tender, non-distended, normal bowel sounds, no palpable masses, no hepatomegaly, no splenomegaly, no bruit Extremities: no cyanosis, no clubbing, no edema Skin: normal turgor Neurological: no focal deficits Musculoskeletal: normal tone Psychiatric: normal affect, normal behavior, A&O x 3 Hosp A/P (1) Acute blood loss anemia Code(s): D62 - ACUTE POSTHEMORRHAGIC ANEMIA Status: Acute (2) Upper GI bleed Code(s): K92.2 - GASTROINTESTINAL HEMORRHAGE, UNSPECIFIED Status: Acute (3) Gastric ulcer Code(s): K25.9 - GASTRIC ULCER, UNSP ACUTE OR CHRONIC, W/O HEMOR OR PERF Status: Acute (4) Atrial fibrillation Code(s): I48.91 - UNSPECIFIED ATRIAL FIBRILLATION Status: Chronic (5) CAD (coronary artery disease) Code(s): I25.10 - ATHSCL HEART DISEASE OF [place] CORONARY ARTERY W/O ANG PCTRS Status: Chronic (6) Chronic diastolic heart failure Code(s): I50.32 - CHRONIC DIASTOLIC (CONGESTIVE) HEART FAILURE Status: Acute (7) Acute metabolic encephalopathy Code(s): G93.41 - METABOLIC ENCEPHALOPATHY Status: Acute - Plan Acute blood loss anemia: Given her A. fib and the need for aggressive rate control as well as borderline hypotension number can go ahead and transfuse her even though her hemoglobin is 7.0. She has a gastric ulcer that bled but it does not appear to be actively bleeding. We will continue to monitor. Gastric ulcer: Continue with PPI. Again does not appear to have any further active bleeding. Atrial fibrillation: Cardiology following. On IV digoxin for now. Appears to have good rate control. Her blood pressure will not tolerate other aggressive interventions. Avoiding anticoagulation because of the acute GI bleeding. Chronic diastolic heart failure: Stable. Cardiology following. Acute metabolic encephalopathy: Appears to be most recently due to acute bleeding. Appears to be fairly normal at the moment. Leukocytosis: No evidence of active infection.
[2019-10-11] MEDS: Pantoprazole 40 MG VIAL IVP SCH (20:18)
[2019-10-11] MEDS: traZODone HCl 50 MG TAB PO SCH (20:18)
[2019-10-12] MEDS: Sodium Chloride 0.9% 1,000 ML IV SCH (04:10)
[2019-10-12] MEDS: PARoxetine CR 12.5 MG TAB PO SCH (08:44)
[2019-10-12] MEDS: Nystatin Powder 15 GM BOT TOP SCH (08:44)
[2019-10-12] MEDS: Pantoprazole 40 MG VIAL IVP SCH ×2 (08:44→20:16)
[2019-10-12] MEDS: Digoxin 0.5 MG/2 ML AMP SLOW IVP SCH (08:45)
[2019-10-12 09:53] LABS: Hemoglobin 7.9 g/dL (12.0-16.0); Platelet Count 179 thou/uL (130-400)
--- NOTE | 2019-10-12 11:21 | PRG ---
DATE OF SERVICE: 10/12/2019 SUBJECTIVE: Amy Yo remains in the ICU weak. OBJECTIVE: VITAL SIGNS: Temperature 98, pulse 108, blood pressure 110/57, sats room air. GENERAL: She denies any pain or discomfort. CHEST: No wheezing. No crackles. CARDIAC: Normal S1, S2. No gallops. ABDOMEN: No masses. LABORATORY DATA: H and H are 7.9 and 24. Glucose . ASSESSMENT: GI bleed, peptic ulcer disease, severe deconditioning, advanced age. PLAN: Continue PT, supportive care. Increase diet as tolerated. Pulmonary is going to follow while in the MICU. Job ID: [id number]
[2019-10-12 12:21] VITALS: BMI 32.5
--- NOTE | 2019-10-12 16:22 | PDOC.CPN ---
- Subjective Date: 10/12/19 Time: 16:24 Interval history: The pt seen and examined. No overnight events. No cardiac complaints. - Objective Allergies/Adverse Reactions: Allergies Allergy/AdvReac Type Severity Reaction Status Date / Time cortisone Allergy Verified 10/02/19 05:38 lorazepam [From Ativan] Allergy Verified 10/02/19 05:38 Sulfa (Sulfonamide Allergy Verified 10/02/19 05:38 Antibiotics) Visit Medications: Current Medications Acetaminophen (Tylenol) 650 mg [place] Q4H PRN PRN Reason: Fever > 101 Acetaminophen (Tylenol) 650 mg PO Q6H PRN PRN Reason: FEVER > 101 Bisacodyl (Dulcolax) 10 mg [place] DAILYPRN PRN PRN Reason: Constipation Calcium Carbonate (Tums) 1,000 mg PO Q4H PRN PRN Reason: Heartburn or Indigestion Digoxin (Lanoxin) 0.125 mg PO DAILY [facility] Diphenhydramine HCl (Benadryl) 25 mg IVP Q8H PRN PRN Reason: Itching & Hives (mild) Guaifenesin (Robitussin Sf) 200 mg PO Q4H PRN PRN Reason: Cough Sodium Chloride (Normal Saline 0.9%) 1,000 mls @ 50 mls/hr IV .Q20H [facility] Last Admin: 10/12/19 04:10 Dose: 1,000 mls Labetalol HCl (Normodyne) 10 mg SLOW IVP Q4H PRN PRN Reason: SBP > 180 and HR >/= 70 Loperamide HCl (Imodium) 2 mg PO PRN PRN PRN Reason: Diarrhea/Loose Stools Nystatin (Mycostatin Powder) 0 gm TOP DAILY [facility] Last Admin: 10/12/19 08:44 Dose: Not Given Ondansetron HCl (Zofran Odt) 4 mg PO Q6H PRN PRN Reason: Nausea/Vomiting Ondansetron HCl (Zofran) 4 mg IVP Q6H PRN PRN Reason: Nausea/Vomiting Pantoprazole Sodium (Protonix) 40 mg IVP Q12HR [facility] Last Admin: 10/12/19 08:44 Dose: 40 mg Paroxetine HCl (Paxil Cr) 37.5 mg PO DAILY [facility] Last Admin: 10/12/19 08:44 Dose: 37.5 mg Senna/Docusate Sodium (Senokot S) 2 tab PO BIDPRN PRN PRN Reason: Constipation Sodium Chloride (Flush - Normal Saline) 10 ml IVF Q12HR [facility] Last Admin: 10/12/19 08:45 Dose: 10 ml Sodium Chloride (Flush - Normal Saline) 10 ml IVF PRN PRN PRN Reason: Saline Flush Last Admin: 10/05/19 05:47 Dose: 10 ml Sodium Chloride ([place] Nasal [place] 0.65%) 0 ml EA NARE QIDPRN PRN PRN Reason: Nasal Congestion Throat Lozenges (Cepastat Lozenges) 1 nora PO Q2H PRN PRN Reason: Sore Throat Trazodone HCl (Desyrel) 50 mg PO HS [facility] Last Admin: 10/11/19 20:18 Dose: 50 mg Vital Signs & Weight: Vital Signs Temp Pulse Pulse Ox 10/12/19 15:21 99.2 F 10/12/19 11:21 98.4 F 10/12/19 08:45 108 H 10/12/19 08:00 95 10/12/19 07:19 98.3 F Admit Weight 225 lb 4.8 oz Weight 195 lb 8 oz - Physical Exam General: other (confused) Neck: supple neck Cardiac: irregularly regular Lungs: decreased breath sounds Extremities: no edema - Labs Result Diagrams: 10/12/19 09:30 10/11/19 03:23 Troponin/CKMB CK-MB (CK-2) 0.9 ng/mL (0-6.6) 10/02/19 01:15 Troponin I 0.013 ng/mL (< 0.028) 10/02/19 08:03 - Telemetry Supraventricular conduction: atrial fibrillation - Assessment/Plan Assessment/Plan: 1. Chronic Afib with RVR - well controlled HR; on Digoxin 0.125mg qd; not on OAC due to Anemia 2/2 GI bleed 2. GI bleed with large duodenal ulcer by EGD on 10/11/2019 - 3. Chronic Diastolic HF - Lasix 20mg IV x1 now and decrease NS from 100ml to 50ml/h; But has Hx of hypotension 4. Hx of CAD? - unclear; may need more information from [facility]. Not on Bblocker or LIBAN/ARB due to hypotension; not on ASA due to GI bleed 5. Anemia with hx of 1 unit PRBC tx - will blood tx when Hgb <7.[address] Nails 6. Ex-smoker, quit 08/2019? - MAR reviewed * Echo on 10/03/2019 with EF 55-60%, mild-mod LAE, mild WINSTON, mild MR Pt. seen and eval. by me. I agree with the A/P by the TIPPLE WORKER. She remains anemic but stable.Chest clear, irreg./irreg. No edema. Pt. may need rehab on d/c. ginny
--- NOTE | 2019-10-12 16:38 | PRG ---
DATE OF SERVICE: SUBJECTIVE: Ms. Yo was seen by Dr. Espinoza on the for hematochezia, anticoagulation reversal and she was transfused. She wanted upper endoscopy yesterday showing a large duodenal ulcer that was white based. This was likely the source of bleeding. The colonoscopy was incomplete secondary to a large amount of black blood retained in the colon, so it was decided not to try to repeat that exam in light of the large ulcer that was found that likely explains her bleeding. She has had no further bleeding today. She has gotten up out of bed with physical therapy. She is tolerating clear liquids. MEDICATIONS: 1. Tylenol. 2. Tums. 3. Benadryl p.r.n. 4. Normodyne p.r.n. 5. Imodium p.r.n. 6. . 7. Zofran p.r.n. 8. Protonix 40 IV q.12. 9. Paxil. 10. Normal saline at 50 an hour. 11. Throat lozenges. 12. Trazodone at bedtime. PHYSICAL EXAMINATION: VITAL SIGNS: Temperature is 99.2, blood pressure , heart rate is 86. GENERAL: She is frail. She is in no distress. She is alert and oriented. HEENT: Conjunctivae are slightly pale and clear. LABORATORY DATA: Hemoglobin is 7.9 this morning and 7 yesterday. No labs were drawn today. Yesterday, BUN and creatinine were 63 and 0.97. ASSESSMENT: Gastrointestinal hemorrhage, likely related to duodenal ulcer. No active bleeding presently. Biopsies negative for Helicobacter pylori. RECOMMENDATIONS: 1. Advance diet to full liquids. 2. If no further bleeding tomorrow, consider change to oral PPI. 3. We would hold anticoagulation for 7 to 10 days in light of the large amount of hemorrhage she had. 4. We will recheck labs in the morning. Job ID: [id number]
--- NOTE | 2019-10-12 17:16 | PDOC.HOSPP ---
- Subjective Encounter Date: 10/12/19 Subjective: And is doing okay today. She denies any significant abdominal pain or other symptoms. Patient's nurse reports no further evidence of active GI bleeding. - Objective Vital Signs & Weight: Vital Signs (12 hours) Temp Pulse Pulse Pulse Pulse Pulse BP 10/12/19 16:23 99 89 85 89 105/56 L 10/12/19 15:21 99.2 F 10/12/19 11:21 98.4 F 10/12/19 08:45 108 H 10/12/19 08:00 10/12/19 07:19 98.3 F BP BP BP Pulse Ox Pulse Ox Pulse Ox Pulse Ox 10/12/19 16:23 107/43 L 108/53 L 99/50 L 96 97 97 10/12/19 15:21 10/12/19 11:21 10/12/19 08:45 10/12/19 08:00 95 10/12/19 07:19 Weight Admit Weight 225 lb 4.8 oz Weight 195 lb 8 oz Most Recent Monitor Data Heart Rate from ECG 80 NIBP 122/54 NIBP BP-Mean 76 Respiration from ECG 22 SpO2 98 I&O: 10/11/19 10/12/19 10/13/19 06:59 06:59 06:59 Intake Total 3670 3500 Output Total 200 1750 Balance 3470 1750 Result Diagrams: 10/12/19 09:30 10/11/19 03:23 Hospitalist ROS - Medication Medications: Active Medications Generic Name Dose Route Start Last Admin Trade Name Freq PRN Reason Stop Dose Admin Sodium Chloride 1,000 mls @ 50 mls/hr 10/11/19 15:03 10/12/19 04:10 Normal Saline 0.9% IV 1,000 mls .Q20H [facility] Administration Nystatin 0 gm 10/02/19 09:00 10/12/19 08:44 Mycostatin Powder TOP Not Given DAILY [facility] Pantoprazole Sodium 40 mg 10/11/19 21:00 10/12/19 08:44 Protonix IVP 40 mg Q12HR [facility] Administration Paroxetine HCl 37.5 mg 10/03/19 09:00 10/12/19 08:44 Paxil Cr PO 37.5 mg DAILY [facility] Administration Sodium Chloride 10 ml 10/02/19 21:00 10/12/19 08:45 Flush - Normal Saline IVF 10 ml Q12HR [facility] Administration Sodium Chloride 10 ml 10/02/19 12:13 10/05/19 05:47 Flush - Normal Saline IVF 10 ml PRN PRN Administration Saline Flush Trazodone HCl 50 mg 10/08/19 21:00 10/11/19 20:18 Desyrel PO 50 mg HS NATALIA Administration - Exam General Appearance: NAD, awake alert Heart: RRR, no murmur, no gallops, no rubs, normal peripheral pulses Respiratory: CTAB, no wheezes, no rales, no ronchi, normal chest expansion, no tachypnea, normal percussion Gastrointestinal: soft, non-tender, non-distended, normal bowel sounds, no palpable masses, no hepatomegaly, no splenomegaly, no bruit Extremities: no cyanosis, no clubbing, no edema Skin: normal turgor Neurological: no new deficit Musculoskeletal: normal tone Psychiatric: normal affect, normal behavior Hosp A/P (1) Acute blood loss anemia Code(s): D62 - ACUTE POSTHEMORRHAGIC ANEMIA Status: Acute (2) Upper GI bleed Code(s): K92.2 - GASTROINTESTINAL HEMORRHAGE, UNSPECIFIED Status: Acute (3) Gastric ulcer Code(s): K25.9 - GASTRIC ULCER, UNSP ACUTE OR CHRONIC, W/O HEMOR OR PERF Status: Acute (4) Atrial fibrillation Code(s): I48.91 - UNSPECIFIED ATRIAL FIBRILLATION Status: Chronic (5) CAD (coronary artery disease) Code(s): I25.10 - ATHSCL HEART DISEASE OF [place] CORONARY ARTERY W/O ANG PCTRS Status: Chronic (6) Chronic diastolic heart failure Code(s): I50.32 - CHRONIC DIASTOLIC (CONGESTIVE) HEART FAILURE Status: Acute (7) Acute metabolic encephalopathy Code(s): G93.41 - METABOLIC ENCEPHALOPATHY Status: Acute - Plan Acute blood loss anemia: Patient had some hypotension yesterday. Her hemoglobin was 7.0 and she was transfused 1 unit. Today her hemoglobin is 7.9. She has had no further evidence of GI bleeding. We will continue to monitor hemoglobin. Gastric ulcer: Continue with PPI. Again does not appear to have any further active bleeding. GI consult appreciated. Plan is to continue with IV PPI through today. Consider changing to p.o. tomorrow. Atrial fibrillation: Cardiology following. On IV digoxin for now. Appears to have good rate control. Her blood pressure will not tolerate other aggressive interventions. Avoiding anticoagulation because of the acute GI bleeding. Chronic diastolic heart failure: Stable. Cardiology following. Acute metabolic encephalopathy: Appears to be most recently due to acute bleeding. Appears to be fairly normal at the moment. Leukocytosis: No evidence of active infection. Disposition: We will transfer the patient to the telemetry floor. Continue close observation. When she is on the oral PPI with no evidence of bleeding will be ready for discharge.
[2019-10-12] MEDS: traZODone HCl 50 MG TAB PO SCH (20:15)
[2019-10-13] MEDS: Sodium Chloride 0.9% 1,000 ML IV SCH (00:38)
[2019-10-13 04:05] LABS: Anion Gap 8 mmol/L (10-20); BUN (Urea Nitrogen) 18 mg/dL (9.8-20.1); Calc. Creatinine Clearance 104 mL/min (70-130); Calcium 8.4 mg/dL (7.8-10.44); Carbon Dioxide 27 mmol/L (23-31); Chloride 110 mmol/L (98-107); Estimated GFR-MDRD 84; Glucose 87 mg/dL (83-110); Sodium 142 mmol/L (136-145)
[2019-10-13 04:07] LABS: Potassium 2.7 mmol/L (3.5-5.1)
[2019-10-13 04:11] LABS: Band 15 % (5-11); Eosinophils 1 % (0-10); Hemoglobin 7.6 g/dL (12.0-16.0); Lymphocytes 28 % (21-51); MDiff Complete? YES; Mean Corpuscular HGB CONC 34.3 g/dL (32.0-36.0); Mean Corpuscular Hemoglobin 32.9 pg (27.0-31.0); Mean Corpuscular Volume 95.8 fL (78.0-98.0); Mean Platelet Volume 8.5 fL (7.4-10.4); Monocytes 5 % (0-10); Neutrophil 51 % (42-75); Nucleated RBC 3 % (0); Platelet Count 173 thou/uL (130-400); Platelet Morphology Comment Appears Adequate; White Blood Cell (WBC) Count 9.2 thou/uL (4.8-10.8)
[2019-10-13] MEDS ORDERED: Electrolyte Replacement Protocol FS SCH (04:30)
[2019-10-13] MEDS: Potassium Chloride 20 MEQ TAB PO SCH ×4 (05:32→12:35)
[2019-10-13] MEDS: Digoxin 0.125 MG TAB PO SCH (08:51)
[2019-10-13] MEDS: Pantoprazole 40 MG VIAL IVP SCH (08:52)
[2019-10-13] MEDS: Nystatin Powder 15 GM BOT TOP SCH (08:55)
[2019-10-13] MEDS: PARoxetine CR 12.5 MG TAB PO SCH (08:56)
--- NOTE | 2019-10-13 09:49 | PRG ---
DATE OF SERVICE: 10/13/2019 SUBJECTIVE: The patient is sitting on the side of the commode. OBJECTIVE: VITAL SIGNS: Temperature 98, pulse 108, sats 95% on room air, blood pressure 120/62. GENERAL: Awake, alert, and responsive. Denies any pain or discomfort. CHEST: Bilateral rhonchi and crackles. CARDIAC: Normal S1, S2. No gallops. ABDOMEN: No masses. LABORATORY DATA: H and H are still low at 7.6 and 22. ASSESSMENT AND PLAN: Gastrointestinal bleed, hypotension, congestive heart failure, improved. She may need transfusion today. Otherwise, she is stable enough to be transferred to telemetry. Job ID: [id number]
--- NOTE | 2019-10-13 13:28 | PDOC.CPN ---
- Subjective Date: 10/13/19 Time: 08:30 Interval history: The pt seen and examined. No overnight events. No cardiac complaints. - Objective Allergies/Adverse Reactions: Allergies Allergy/AdvReac Type Severity Reaction Status Date / Time cortisone Allergy Verified 10/02/19 05:38 lorazepam [From Ativan] Allergy Verified 10/02/19 05:38 Sulfa (Sulfonamide Allergy Verified 10/02/19 05:38 Antibiotics) Visit Medications: Current Medications Acetaminophen (Tylenol) 650 mg [place] Q4H PRN PRN Reason: Fever > 101 Acetaminophen (Tylenol) 650 mg PO Q6H PRN PRN Reason: FEVER > 101 Bisacodyl (Dulcolax) 10 mg [place] DAILYPRN PRN PRN Reason: Constipation Calcium Carbonate (Tums) 1,000 mg PO Q4H PRN PRN Reason: Heartburn or Indigestion Digoxin (Lanoxin) 0.125 mg PO DAILY [facility] Last Admin: 10/13/19 08:51 Dose: 0.125 mg Diphenhydramine HCl (Benadryl) 25 mg IVP Q8H PRN PRN Reason: Itching & Hives (mild) Guaifenesin (Robitussin Sf) 200 mg PO Q4H PRN PRN Reason: Cough Sodium Chloride (Normal Saline 0.9%) 1,000 mls @ 50 mls/hr IV .Q20H [facility] Last Admin: 10/13/19 00:38 Dose: 1,000 mls Labetalol HCl (Normodyne) 10 mg SLOW IVP Q4H PRN PRN Reason: SBP > 180 and HR >/= 70 Loperamide HCl (Imodium) 2 mg PO PRN PRN PRN Reason: Diarrhea/Loose Stools Miscellaneous Medication (Electrolyte Replacement Protocol) 1 each FS ASDIR [facility] Nystatin (Mycostatin Powder) 0 gm TOP DAILY [facility] Last Admin: 10/13/19 08:55 Dose: Not Given Ondansetron HCl (Zofran Odt) 4 mg PO Q6H PRN PRN Reason: Nausea/Vomiting Ondansetron HCl (Zofran) 4 mg IVP Q6H PRN PRN Reason: Nausea/Vomiting Pantoprazole Sodium (Protonix) 40 mg IVP Q12HR [facility] Last Admin: 10/13/19 08:52 Dose: 40 mg Paroxetine HCl (Paxil Cr) 37.5 mg PO DAILY [facility] Last Admin: 10/13/19 08:56 Dose: 37.5 mg Senna/Docusate Sodium (Senokot S) 2 tab PO BIDPRN PRN PRN Reason: Constipation Sodium Chloride (Flush - Normal Saline) 10 ml IVF Q12HR [facility] Last Admin: 10/13/19 08:55 Dose: 10 ml Sodium Chloride (Flush - Normal Saline) 10 ml IVF PRN PRN PRN Reason: Saline Flush Last Admin: 10/05/19 05:47 Dose: 10 ml Sodium Chloride ([place] Nasal [place] 0.65%) 0 ml EA NARE QIDPRN PRN PRN Reason: Nasal Congestion Throat Lozenges (Cepastat Lozenges) 1 nora PO Q2H PRN PRN Reason: Sore Throat Trazodone HCl (Desyrel) 50 mg PO HS [facility] Last Admin: 10/12/19 20:15 Dose: 50 mg Vital Signs & Weight: Vital Signs Temp Pulse Pulse Ox 10/13/19 11:02 98.8 F 10/13/19 08:51 108 H 10/13/19 07:50 98.5 F 10/13/19 07:40 95 10/13/19 03:58 96 10/13/19 03:52 98.6 F Admit Weight 225 lb 4.8 oz Weight 197 lb 8 oz - Physical Exam General: other (confused) Neck: supple neck Cardiac: irregularly regular Lungs: decreased breath sounds Neuro: cranial nerve 2-12 intact Extremities: no edema - Labs Result Diagrams: 10/13/19 03:18 10/13/19 03:18 Troponin/CKMB CK-MB (CK-2) 0.9 ng/mL (0-6.6) 10/02/19 01:15 Troponin I 0.013 ng/mL (< 0.028) 10/02/19 08:03 - Telemetry Supraventricular conduction: atrial fibrillation - Assessment/Plan Assessment/Plan: 1. Chronic Afib with RVR - well controlled HR; on Digoxin 0.125mg qd; not on OAC due to Anemia 2/2 GI bleed 2. GI bleed with large duodenal ulcer by EGD on 10/11/2019 - Per Dr Deng, the pt may need PRBC tx today 3. Chronic Diastolic HF - will stop NS since she is tolerated liquid diet. But caution due to Hx of hypotension 4. Hx of CAD? - unclear; may need more information from [facility]. Not on Bblocker or LIBAN/ARB due to hypotension; not on ASA due to GI bleed 5. Anemia with hx of 1 unit PRBC tx - will blood tx when Hgb <7.[address] Nails 6. Ex-smoker, quit 08/2019? - MAR reviewed * Echo on 10/03/2019 with EF 55-60%, mild-mod LAE, mild WINSTON, mild MR Pt. seen and eval. by me. I agree with the A/P by the FUEL SYSTEM MAINTENANCE WORKER.She looks better today and is sitting up in the chair. Chest clear. Irreg/irreg. no edema. She is hypokalemic today and that is being replaced. ginny
--- NOTE | 2019-10-13 13:49 | PDOC.HOSPP ---
- Subjective Encounter Date: 10/13/19 Subjective: Doing very well. Tolerating full liquids very well. She is eager and hopeful to get to go home soon. She says she will have a daughter with her at all times and another daughter who will be coming into help as well. - Objective Vital Signs & Weight: Vital Signs (12 hours) Temp Pulse Pulse Ox 10/13/19 11:02 98.8 F 10/13/19 08:51 108 H 10/13/19 07:50 98.5 F 10/13/19 07:40 95 10/13/19 03:58 96 10/13/19 03:52 98.6 F Weight Admit Weight 225 lb 4.8 oz Weight 197 lb 8 oz Most Recent Monitor Data Heart Rate from ECG 82 NIBP 106/54 NIBP BP-Mean 71 Respiration from ECG 22 SpO2 97 I&O: 10/12/19 10/13/19 10/14/19 06:59 06:59 06:59 Intake Total 3500 2130 Output Total 1750 1150 Balance 1750 980 Result Diagrams: 10/13/19 03:18 10/13/19 03:18 Hospitalist ROS - Medication Medications: Active Medications Generic Name Dose Route Start Last Admin Trade Name Freq PRN Reason Stop Dose Admin Digoxin 0.125 mg 10/13/19 09:00 10/13/19 08:51 Lanoxin PO 0.125 mg DAILY NATALIA Administration Nystatin 0 gm 10/02/19 09:00 10/13/19 08:55 Mycostatin Powder TOP Not Given DAILY NATALIA Paroxetine HCl 37.5 mg 10/03/19 09:00 10/13/19 08:56 Paxil Cr PO 37.5 mg DAILY NATALIA Administration Sodium Chloride 10 ml 10/02/19 21:00 10/13/19 08:55 Flush - Normal Saline IVF 10 ml Q12HR NATALIA Administration Sodium Chloride 10 ml 10/02/19 12:13 10/05/19 05:47 Flush - Normal Saline IVF 10 ml PRN PRN Administration Saline Flush Trazodone HCl 50 mg 10/08/19 21:00 10/12/19 20:15 Desyrel PO 50 mg HS NATALIA Administration - Exam General Appearance: NAD, awake alert Heart: RRR, no murmur, no gallops, no rubs, normal peripheral pulses Respiratory: CTAB, no wheezes, no rales, no ronchi, normal chest expansion, no tachypnea, normal percussion Gastrointestinal: soft, non-tender, non-distended, normal bowel sounds, no palpable masses, no hepatomegaly, no splenomegaly, no bruit Extremities: no cyanosis, no clubbing, no edema Skin: normal turgor, no lesions, no rashes Musculoskeletal: normal tone Psychiatric: normal affect, normal behavior, A&O x 3 Hosp A/P (1) Acute blood loss anemia Code(s): D62 - ACUTE POSTHEMORRHAGIC ANEMIA Status: Acute (2) Upper GI bleed Code(s): K92.2 - GASTROINTESTINAL HEMORRHAGE, UNSPECIFIED Status: Acute (3) Gastric ulcer Code(s): K25.9 - GASTRIC ULCER, UNSP ACUTE OR CHRONIC, W/O HEMOR OR PERF Status: Acute (4) Atrial fibrillation Code(s): I48.91 - UNSPECIFIED ATRIAL FIBRILLATION Status: Chronic (5) CAD (coronary artery disease) Code(s): I25.10 - ATHSCL HEART DISEASE OF [place] CORONARY ARTERY W/O ANG PCTRS Status: Chronic (6) Chronic diastolic heart failure Code(s): I50.32 - CHRONIC DIASTOLIC (CONGESTIVE) HEART FAILURE Status: Acute (7) Acute metabolic encephalopathy Code(s): G93.41 - METABOLIC ENCEPHALOPATHY Status: Resolved - Plan Acute blood loss anemia: Hemoglobin at 7.6 today. Essentially stable from yesterday. We will recheck one more time in the morning. Secondary to acute GI bleed. Gastric ulcer: Continue with PPI. Again does not appear to have any further active bleeding. She seems to have no evidence of persistent bleeding at this time. We will go ahead and change her PPI to oral. Atrial fibrillation: Cardiology following. On low-dose p.o. digoxin for now. Appears to have good rate control. Her blood pressure will not tolerate other aggressive interventions. Avoiding anticoagulation because of the acute GI bleeding. May consider anticoagulation in a week to 10 days. Chronic diastolic heart failure: Stable. Cardiology following. Acute metabolic encephalopathy: Appears to be most recently due to acute bleeding. Resolved. Leukocytosis: No evidence of active infection. Disposition: We will transfer the patient to the telemetry floor. Anticipate GI will advance her to a regular diet today. We will recheck her hemoglobin in the morning. If it remains stable anticipate discharge to home. Recommendations from physical therapy are for some ongoing therapy. Patient strongly wishes to go home and consider having that through home health. I will consult case management to help arrange that. Sounds like she will have adequate help at home.
[2019-10-13] MEDS: Iron, Sodium Ferric Gluconate 250 MG in Sodium Chloride 0.9% 100 ML IVPB SCH (18:23)
[2019-10-13] MEDS: traZODone HCl 50 MG TAB PO SCH (20:44)
[2019-10-13] MEDS ORDERED: Iron, Sodium Ferric Gluconate 250 MG in Sodium Chloride 0.9% 100 ML IVPB SCH (21:00)
[2019-10-14 04:33] LABS: Anion Gap 8 mmol/L (10-20); BUN (Urea Nitrogen) 11 mg/dL (9.8-20.1); Calc. Creatinine Clearance 103 mL/min (70-130); Calcium 8.4 mg/dL (7.8-10.44); Carbon Dioxide 26 mmol/L (23-31); Chloride 110 mmol/L (98-107); Estimated GFR-MDRD 82; Glucose 93 mg/dL (83-110); Potassium 3.4 mmol/L (3.5-5.1); Sodium 141 mmol/L (136-145)
[2019-10-14] MEDS: Iron, Sodium Ferric Gluconate 250 MG in Sodium Chloride 0.9% 100 ML IVPB SCH (05:16)
[2019-10-14 05:40] LABS: #Basophils 0.1 thou/uL (0.0-0.2); #Eosinphils 0.1 thou/uL (0.0-0.7); #Lymphocytes 3.1 thou/uL (1.20-3.40); #Monocytes 0.5 thou/uL (0.11-0.59); #Neutrophils 5.6 thou/uL (1.40-6.50); %Basophils 0.7 % (0.0-1.0); %Eosinophils 1.3 % (0.0-10.0); %Lymphocytes 33.3 % (21.0-51.0); %Monocytes 4.9 % (0.0-10.0); %Neutrophils 59.8 % (42.0-75.0); Hemoglobin 8.1 g/dL (12.0-16.0); Mean Corpuscular Hemoglobin 32.8 pg (27.0-31.0); Mean Corpuscular Volume 96.7 fL (78.0-98.0); Mean Platelet Volume 8.5 fL (7.4-10.4); Platelet Count 180 thou/uL (130-400); RBC Distribution Width 15.7 % (11.5-14.5); Red Blood Cell (RBC) Count 2.47 mill/uL (4.20-5.40); White Blood Cell (WBC) Count 9.3 thou/uL (4.8-10.8)
[2019-10-14] MEDS ORDERED: Potassium Chloride 20 MEQ TAB PO SCH (06:15)
[2019-10-14] MEDS ORDERED: Potassium Chloride 40 MEQ in Sodium Chloride 0.9% 250 ML 250 ML IVPB SCH (06:15)
[2019-10-14] MEDS ORDERED: Electrolyte Replacement Protocol FS PRN (06:15)
--- NOTE | 2019-10-14 06:34 | PRG ---
DATE OF SERVICE: 10/13/2019 SUBJECTIVE: Ms. Yo feels well. She states she is ready to go home; however, I think she is just going to go to a floor bed for now. She has had no bleeding. She is tolerating a full liquid diet. Medication, she is on Protonix 40 mg p.o. b.i.d. now. She received a total of 2 units of blood over the and . She remains on a full liquid diet. PHYSICAL EXAMINATION: VITAL SIGNS: Temperature is 98.7. She has been afebrile since admission. Blood pressure 109/53, pulse . GENERAL: She is sitting up in bed. She looks much more alert today. She looks more pink. HEENT: Oropharynx, without lesions. NECK: Supple. LUNGS: Clear. HEART: Regular rate and rhythm. No murmurs. ABDOMEN: Soft and nontender. LABORATORY DATA: Hemoglobin 7.6, white count 9, platelet count 173. Sodium 142, potassium 2.7, it has been replaced, bicarb 27, chloride 110, BUN and creatinine are 18 and 0.69 down from 63 and 0.76 yesterday. ASSESSMENT: 1. Gastrointestinal hemorrhage from duodenal ulcer. She states she was taking heavy doses of NSAIDs at home. Biopsies negative for H pylori or malignancy. 2. Significant anemia. RECOMMENDATIONS: 1. Continue PPI b.i.d. for 2 weeks and then once daily for 3 months. 2. Avoid NSAIDs. 3. We will give a dose of IV iron in light of her anemia. 4. We will sign off for now. If I can be any further assistance in her care, please do not hesitate to contact me. Job ID: [id number]
[2019-10-14] MEDS ORDERED: Magnesium 2 GM/50 ML 2 GM in Premix Bag 1 BAG IVPB SCH (06:45)
[2019-10-14] MEDS: Digoxin 0.125 MG TAB PO SCH (08:22)
[2019-10-14] MEDS: PARoxetine CR 12.5 MG TAB PO SCH (08:22)
[2019-10-14] MEDS: Nystatin Powder 15 GM BOT TOP SCH (08:25)
--- NOTE | 2019-10-14 13:06 | PDOC.CPN ---
- Subjective Date: 10/14/19 Time: 12:40 Interval history: Ms. Yo is awake, she denies any acute complaints or concerns. Denies chest pain or tightness, denies SOB. Seen and examined by me. Telemetry reviewed, no overnight events. Remains in AFib, rate-controlled. - Review of Systems General: denies: fever/chills, weight/appetite/sleep changes, night sweats, fatigue Respiratory: denies: cough, congestion, shortness of breath, exercise intolerance Cardiovascular: denies: chest pain, palpitation, edema, paroxysmal nocturnal dyspnea, orthopnea Gastrointestinal: denies: nausea, vomiting, diarrhea, constipation, abd pain, GI bleeding - Objective Allergies/Adverse Reactions: Allergies Allergy/AdvReac Type Severity Reaction Status Date / Time cortisone Allergy Verified 10/02/19 05:38 lorazepam [From Ativan] Allergy Verified 10/02/19 05:38 Sulfa (Sulfonamide Allergy Verified 10/02/19 05:38 Antibiotics) Visit Medications: Current Medications Acetaminophen (Tylenol) 650 mg [place] Q4H PRN PRN Reason: Fever > 101 Acetaminophen (Tylenol) 650 mg PO Q6H PRN PRN Reason: FEVER > 101 Bisacodyl (Dulcolax) 10 mg [place] DAILYPRN PRN PRN Reason: Constipation Calcium Carbonate (Tums) 1,000 mg PO Q4H PRN PRN Reason: Heartburn or Indigestion Digoxin (Lanoxin) 0.125 mg PO DAILY [facility] Last Admin: 10/14/19 08:22 Dose: 0.125 mg Diphenhydramine HCl (Benadryl) 25 mg IVP Q8H PRN PRN Reason: Itching & Hives (mild) Guaifenesin (Robitussin Sf) 200 mg PO Q4H PRN PRN Reason: Cough Labetalol HCl (Normodyne) 10 mg SLOW IVP Q4H PRN PRN Reason: SBP > 180 and HR >/= 70 Loperamide HCl (Imodium) 2 mg PO PRN PRN PRN Reason: Diarrhea/Loose Stools Miscellaneous Medication (Electrolyte Replacement Protocol) 0 each FS ASDIR PRN ; Protocol PRN Reason: ELECTROLYTE REPLACEMENT Nystatin (Mycostatin Powder) 0 gm TOP DAILY [facility] Last Admin: 10/14/19 08:25 Dose: 1 applic Ondansetron HCl (Zofran Odt) 4 mg PO Q6H PRN PRN Reason: Nausea/Vomiting Ondansetron HCl (Zofran) 4 mg IVP Q6H PRN PRN Reason: Nausea/Vomiting Pantoprazole Sodium (Protonix) 40 mg PO BID [facility] Last Admin: 10/14/19 08:22 Dose: 40 mg Paroxetine HCl (Paxil Cr) 37.5 mg PO DAILY [facility] Last Admin: 10/14/19 08:22 Dose: 37.5 mg Senna/Docusate Sodium (Senokot S) 2 tab PO BIDPRN PRN PRN Reason: Constipation Sodium Chloride (Flush - Normal Saline) 10 ml IVF Q12HR [facility] Last Admin: 10/14/19 08:24 Dose: 10 ml Sodium Chloride (Flush - Normal Saline) 10 ml IVF PRN PRN PRN Reason: Saline Flush Last Admin: 10/05/19 05:47 Dose: 10 ml Sodium Chloride ([place] Nasal [place] 0.65%) 0 ml EA NARE QIDPRN PRN PRN Reason: Nasal Congestion Throat Lozenges (Cepastat Lozenges) 1 nora PO Q2H PRN PRN Reason: Sore Throat Trazodone HCl (Desyrel) 50 mg PO HS [facility] Last Admin: 10/13/19 20:44 Dose: 50 mg Vital Signs & Weight: Vital Signs Temp Pulse Resp BP BP Pulse Ox 10/14/19 12:05 97.7 F 85 19 122/54 L 95 10/14/19 07:04 98.4 F 80 20 121/54 L 97 10/14/19 04:20 99.3 F 86 16 126/57 L 99 10/14/19 01:37 96 Admit Weight 225 lb 4.8 oz Weight 194 lb 8 oz - CHADS-VASc Congestive heart failure: 1 Age >75: 2 Age 65-74: 1 Vascular disease: 1 Female: 1 Risk Score: 6 - Quality Measures Condition: Atrial Fibrillation/Flutter (hx or current) CV meds: Beta Carrol: No, LIBAN/ARB: No, Statin: No, ASA: No, Plavix/Effient/ Brilinta: No, Anticoagulant: No - Medication Contraindications No Beta Carrol reason: Beta carrol not tolerated No LIBAN/ARB reason: ACEI/ARB not tolerated No Antithrombotic reason: Antithrombotic not tolerated No Anticoagulant reason: Anticoagulant not tolerated - Physical Exam General: alert & oriented x3, appears well, no apparent distress HEENT: mucus membranes moist Neck: supple neck, no JVD/HJR Cardiac: no murmur, irregularly regular Lungs: clear to auscultation, normal breath sounds, no wheeze, rales, rhonchi Neuro: grossly intact Abdomen: active bowel sounds, soft, non-tender Extremities: no cyanosis, no clubbing, no edema - Labs Result Diagrams: 10/14/19 04:43 10/14/19 04:03 Troponin/CKMB CK-MB (CK-2) 0.9 ng/mL (0-6.6) 10/02/19 01:15 Troponin I 0.013 ng/mL (< 0.028) 10/02/19 08:03 - Telemetry Supraventricular conduction: atrial fibrillation (Rate-controlled) - Assessment/Plan Assessment/Plan: Assessment: 1. Chronic Afib with RVR - well controlled HR; on Digoxin 0.125mg qd 2. GI bleed with large duodenal ulcer by EGD on 10/11/2019 - Hgb stable at 8.1 today 3. Chronic Diastolic HF-stable, appears euvolemic, no exertional symptoms. 4. Hx of CAD? - unclear; may need more information from [facility]. Not on Bblocker or LIBAN/ARB due to hypotension; not on ASA due to GI bleed, no statin ( per patient, has never taken, she will consider this as an outpatient). 5. Anemia with hx of 1 unit PRBC tx-stable 6. Ex-smoker, quit 08/2019? - MAR reviewed Plan: AFib, rate-controlled. Consideration for OAC in 10-14 days with stable Hgb. CV status stable, okay to discharge home from CV standpoint. Needs to follow- up with Dr. Gruber in 2 weeks. * Echo on 10/03/2019 with EF 55-60%, mild-mod LAE, mild WINSTON, mild MR
--- NOTE | 2019-10-14 16:18 | PRG ---
DATE OF SERVICE: 10/14/2019 SUBJECTIVE: The patient is doing well and wants to be discharged to home. OBJECTIVE: VITAL SIGNS: Temperature 97.7, pulse 85, respirations 19, O2 sat 95% on room air. HEENT: Unremarkable. NECK: No JVD. LUNGS: Clear anteriorly. CARDIAC: S1, S2. Regular. ABDOMEN: Soft. EXTREMITIES: Trace edema. LABORATORY DATA: White blood cell count 9.3, hematocrit 23.9, and platelet count 180. Sodium 141, potassium 3.4, BUN 11, creatinine 0.7, glucose 93. ASSESSMENT: 1. Status post gastrointestinal bleed. 2. Congestive heart failure. PLAN: The patient is doing well from pulmonary standpoint. No further recommendations. We will sign off. Job ID: [id number]
--- NOTE | 2019-10-14 17:33 | PDOC.HOSPP ---
- Subjective Encounter Date: 10/14/19 Encounter Time: 14:50 Subjective: pt sitting in the bed, no acute issues, hgb 8.1, no AC. wants to go home, i know this pt from my last shifts. it was planned for rehab. pt states that dtr will pick her up. but the same dtr told in the past, that she prefers mom to go to rehab. - Objective Vital Signs & Weight: Vital Signs (12 hours) Temp Pulse Pulse Pulse Resp BP BP 10/14/19 15:51 98.8 F 84 17 10/14/19 13:51 87 82 126/56 L 131/59 L 10/14/19 12:05 97.7 F 85 19 10/14/19 07:04 98.4 F 80 20 BP Pulse Ox 10/14/19 15:51 132/62 96 10/14/19 13:51 10/14/19 12:05 122/54 L 95 10/14/19 07:04 121/54 L 97 Weight Admit Weight 225 lb 4.8 oz Weight 194 lb 8 oz Most Recent Monitor Data Heart Rate from ECG 87 NIBP 104/65 NIBP BP-Mean 78 Respiration from ECG 23 SpO2 97 I&O: 10/13/19 10/14/19 10/15/19 06:59 06:59 06:59 Intake Total 2130 1430 Output Total 1150 450 Balance 980 980 Result Diagrams: 10/14/19 04:43 10/14/19 04:03 Hospitalist ROS - Medication Medications: Active Medications Generic Name Dose Route Start Last Admin Trade Name Freq PRN Reason Stop Dose Admin Digoxin 0.125 mg 10/13/19 09:00 10/14/19 08:22 Lanoxin PO 0.125 mg DAILY NATALIA Administration Nystatin 0 gm 10/02/19 09:00 10/14/19 08:25 Mycostatin Powder TOP 1 applic DAILY NATALIA Administration Pantoprazole Sodium 40 mg 10/13/19 21:00 10/14/19 08:22 Protonix PO 40 mg BID NATALIA Administration Paroxetine HCl 37.5 mg 10/03/19 09:00 10/14/19 08:22 Paxil Cr PO 37.5 mg DAILY NATALIA Administration Sodium Chloride 10 ml 10/02/19 21:00 10/14/19 08:24 Flush - Normal Saline IVF 10 ml Q12HR NATALIA Administration Sodium Chloride 10 ml 10/02/19 12:13 10/05/19 05:47 Flush - Normal Saline IVF 10 ml PRN PRN Administration Saline Flush Trazodone HCl 50 mg 10/08/19 21:00 10/13/19 20:44 Desyrel PO 50 mg HS NATALIA Administration - Exam General Appearance: NAD, awake alert Eye: PERRL ENT: normocephalic atraumatic Neck: supple Heart: RRR Respiratory: CTAB, normal chest expansion Gastrointestinal: soft, normal bowel sounds Neurological: no focal deficits Psychiatric: normal affect, normal behavior, A&O x 3 Hosp A/P - Plan (3) Decompensated heart failure Code(s): I50.9 - HEART FAILURE, UNSPECIFIED Status: Acute Plan: Left pleural effusion on CXR, she was started on Lasix 20 mg BID IV. 2+ edema, continue diuretics. BNP 700s. (4) Atrial fibrillation Code(s): I48.91 - UNSPECIFIED ATRIAL FIBRILLATION Status: Chronic Plan: Initially came in with afib RVR, she has resumed digoxin which she takes at home. HR in 80s. - off coumadin-d/t GIB (5) Elevated troponin -cardiology following -[facility] in 2 wks after dc. - (6) Leukocytosis Code(s): D72.829 - ELEVATED WHITE BLOOD CELL COUNT, UNSPECIFIED Status: Acute Plan: Repeat CXR to assess questionable infiltrate seen on initial CXR. UA/UCx. Check lactic acid (7) CAD (coronary artery disease) Code(s): I25.10 - ATHSCL HEART DISEASE OF [place] CORONARY ARTERY W/O ANG PCTRS Status: Chronic off IV diuresis. -echo eF 60% LAD, no aort insuff. -lasix PO chronic meta alkalosis - d/t being on chr diuretics - will give diamox, as she needs little more diuresis. -->completed. UGIB requiring transfusion of FFP and prbc. Gastric ulcer -cw PPI -hgb stable at 8 -no coumadin x 14 days COVID neg. rehab placement pending.
[2019-10-14] MEDS: traZODone HCl 50 MG TAB PO SCH (20:34)
[2019-10-15] MEDS: Digoxin 0.125 MG TAB PO SCH (09:00)
[2019-10-15] MEDS: Nystatin Powder 15 GM BOT TOP SCH (09:00)
[2019-10-15] MEDS: PARoxetine CR 12.5 MG TAB PO SCH (09:01)
--- NOTE | 2019-10-15 10:18 | PDOC.CPN ---
- Subjective Date: 10/15/19 Time: 10:30 Interval history: Patient seen and examined by me. She denies any acute cardiac complaints or concerns. Denies CP, SOB. Slept well. She is concerned that she is going to Rehab instead of home. Telemetry reviewed, no overnight events. - Review of Systems General: denies: fever/chills, weight/appetite/sleep changes, night sweats, fatigue Respiratory: denies: cough, congestion, shortness of breath, exercise intolerance Cardiovascular: denies: chest pain, palpitation, edema, paroxysmal nocturnal dyspnea, orthopnea Gastrointestinal: denies: nausea, vomiting, diarrhea, constipation, abd pain, GI bleeding - Objective Allergies/Adverse Reactions: Allergies Allergy/AdvReac Type Severity Reaction Status Date / Time cortisone Allergy Verified 10/02/19 05:38 lorazepam [From Ativan] Allergy Verified 10/02/19 05:38 Sulfa (Sulfonamide Allergy Verified 10/02/19 05:38 Antibiotics) Visit Medications: Current Medications Acetaminophen (Tylenol) 650 mg [place] Q4H PRN PRN Reason: Fever > 101 Acetaminophen (Tylenol) 650 mg PO Q6H PRN PRN Reason: FEVER > 101 Bisacodyl (Dulcolax) 10 mg [place] DAILYPRN PRN PRN Reason: Constipation Calcium Carbonate (Tums) 1,000 mg PO Q4H PRN PRN Reason: Heartburn or Indigestion Digoxin (Lanoxin) 0.125 mg PO DAILY [facility] Last Admin: 10/15/19 09:00 Dose: 0.125 mg Diphenhydramine HCl (Benadryl) 25 mg IVP Q8H PRN PRN Reason: Itching & Hives (mild) Guaifenesin (Robitussin Sf) 200 mg PO Q4H PRN PRN Reason: Cough Labetalol HCl (Normodyne) 10 mg SLOW IVP Q4H PRN PRN Reason: SBP > 180 and HR >/= 70 Loperamide HCl (Imodium) 2 mg PO PRN PRN PRN Reason: Diarrhea/Loose Stools Miscellaneous Medication (Electrolyte Replacement Protocol) 0 each FS ASDIR PRN ; Protocol PRN Reason: ELECTROLYTE REPLACEMENT Nystatin (Mycostatin Powder) 0 gm TOP DAILY [facility] Last Admin: 10/15/19 09:00 Dose: 1 applic Ondansetron HCl (Zofran Odt) 4 mg PO Q6H PRN PRN Reason: Nausea/Vomiting Ondansetron HCl (Zofran) 4 mg IVP Q6H PRN PRN Reason: Nausea/Vomiting Pantoprazole Sodium (Protonix) 40 mg PO BID [facility] Last Admin: 10/15/19 09:00 Dose: 40 mg Paroxetine HCl (Paxil Cr) 37.5 mg PO DAILY [facility] Last Admin: 10/15/19 09:01 Dose: 37.5 mg Senna/Docusate Sodium (Senokot S) 2 tab PO BIDPRN PRN PRN Reason: Constipation Sodium Chloride (Flush - Normal Saline) 10 ml IVF Q12HR [facility] Last Admin: 10/15/19 09:01 Dose: 10 ml Sodium Chloride (Flush - Normal Saline) 10 ml IVF PRN PRN PRN Reason: Saline Flush Last Admin: 10/05/19 05:47 Dose: 10 ml Sodium Chloride ([place] Nasal [place] 0.65%) 0 ml EA NARE QIDPRN PRN PRN Reason: Nasal Congestion Throat Lozenges (Cepastat Lozenges) 1 nora PO Q2H PRN PRN Reason: Sore Throat Trazodone HCl (Desyrel) 50 mg PO HS [facility] Last Admin: 10/14/19 20:34 Dose: 50 mg Vital Signs & Weight: Vital Signs Temp Pulse Resp BP Pulse Ox 10/15/19 07:54 98.6 F 85 20 152/67 H 97 10/15/19 04:00 98.1 F 76 18 137/62 96 10/15/19 01:11 97 10/15/19 00:00 82 Admit Weight 225 lb 4.8 oz Weight 196 lb 14.4 oz - CHADS-VASc Congestive heart failure: 1 Hypertension: 1 Age 65-74: 1 Vascular disease: 1 Female: 1 Risk Score: 5 - Quality Measures Condition: Atrial Fibrillation/Flutter (hx or current) CV meds: Beta Carrol: No, LIBAN/ARB: No, Statin: No, ASA: No, Plavix/Effient/ Brilinta: No, Anticoagulant: No - Medication Contraindications No Beta Carrol reason: Beta carrol not tolerated No LIBAN/ARB reason: ACEI/ARB not tolerated No Antithrombotic reason: Antithrombotic not tolerated No Anticoagulant reason: Anticoagulant not tolerated - Physical Exam General: alert & oriented x3, appears well, no apparent distress HEENT: mucus membranes moist Neck: supple neck, no JVD/HJR Cardiac: no murmur, irregularly regular, S1/S2 Lungs: clear to auscultation, normal breath sounds, no wheeze, rales, rhonchi Neuro: grossly intact Abdomen: unremarkable, active bowel sounds, soft Extremities: no cyanosis, no clubbing, no edema - Labs Result Diagrams: 10/14/19 04:43 10/14/19 04:03 Troponin/CKMB CK-MB (CK-2) 0.9 ng/mL (0-6.6) 10/02/19 01:15 Troponin I 0.013 ng/mL (< 0.028) 10/02/19 08:03 - Telemetry Supraventricular conduction: atrial fibrillation (70s-90s) - Assessment/Plan Assessment/Plan: Assessment: 1. Chronic Afib with RVR - well controlled HR; on Digoxin 0.125mg qd 2. GI bleed with large duodenal ulcer by EGD on 10/11/2019 -most recent Hgb 8.1 , stable. 3. Chronic Diastolic HF-stable, appears euvolemic, no exertional symptoms. 4. Hx of CAD? - unclear; may need more information from [facility]. Not on Bblocker or LIBAN/ARB due to hypotension; not on ASA due to GI bleed, no statin ( per patient, has never taken, she will consider this as an outpatient). 5. Anemia with hx of 1 unit PRBC tx-stable 6. Ex-smoker, quit 08/2019? - MAR reviewed Plan: AFib, rate-controlled. Consideration for OAC in 10-14 days with stable Hgb. CV status stable, okay to discharge, awaiting placement. Needs to follow-up with Dr. Gruber in 2 weeks. * Echo on 10/03/2019 with EF 55-60%, mild-mod LAE, mild WINSTON, mild MR
--- NOTE | 2019-10-15 11:23 | PDOC.HOSPP ---
- Subjective Encounter Date: 10/15/19 Encounter Time: 11:20 Subjective: pt is not happy with the plan of waiting for rehab. tried to reach dtr [place] at [phone] and only voice msge. she is doing well, K is mildly less. will replace. - Objective Vital Signs & Weight: Vital Signs (12 hours) Temp Pulse Resp BP Pulse Ox 10/15/19 07:54 98.6 F 85 20 152/67 H 97 10/15/19 04:00 98.1 F 76 18 137/62 96 10/15/19 01:11 97 10/15/19 00:00 82 Weight Admit Weight 225 lb 4.8 oz Weight 196 lb 14.4 oz Most Recent Monitor Data Heart Rate from ECG 87 NIBP 104/65 NIBP BP-Mean 78 Respiration from ECG 23 SpO2 97 I&O: 10/14/19 10/15/19 10/16/19 06:59 06:59 06:59 Intake Total 1430 1640 Output Total 450 Balance 980 1640 Result Diagrams: 10/14/19 04:43 10/14/19 04:03 Hospitalist ROS - Medication Medications: Active Medications Generic Name Dose Route Start Last Admin Trade Name Freq PRN Reason Stop Dose Admin Digoxin 0.125 mg 10/13/19 09:00 10/15/19 09:00 Lanoxin PO 0.125 mg DAILY NATALIA Administration Nystatin 0 gm 10/02/19 09:00 10/15/19 09:00 Mycostatin Powder TOP 1 applic DAILY NATALIA Administration Pantoprazole Sodium 40 mg 10/13/19 21:00 10/15/19 09:00 Protonix PO 40 mg BID NATALIA Administration Paroxetine HCl 37.5 mg 10/03/19 09:00 10/15/19 09:01 Paxil Cr PO 37.5 mg DAILY NATALIA Administration Sodium Chloride 10 ml 10/02/19 21:00 10/15/19 09:01 Flush - Normal Saline IVF 10 ml Q12HR NATALIA Administration Sodium Chloride 10 ml 10/02/19 12:13 10/05/19 05:47 Flush - Normal Saline IVF 10 ml PRN PRN Administration Saline Flush Trazodone HCl 50 mg 10/08/19 21:00 10/14/19 20:34 Desyrel PO 50 mg HS NATALIA Administration - Exam General Appearance: NAD, awake alert Eye: PERRL ENT: normocephalic atraumatic Neck: supple Heart: RRR, normal peripheral pulses Respiratory: CTAB, normal chest expansion Gastrointestinal: soft, normal bowel sounds Neurological: no focal deficits Psychiatric: normal affect, normal behavior, A&O x 3 Hosp A/P - Plan (3) Decompensated heart failure Code(s): I50.9 - HEART FAILURE, UNSPECIFIED Status: Acute Plan: Left pleural effusion on CXR, she was started on Lasix 20 mg BID IV. 2+ edema, continue diuretics. BNP 700s. (4) Atrial fibrillation Code(s): I48.91 - UNSPECIFIED ATRIAL FIBRILLATION Status: Chronic Plan: Initially came in with afib RVR, she has resumed digoxin which she takes at home. HR in 80s. - off coumadin-d/t GIB (5) Elevated troponin -cardiology following -[facility] in 2 wks after dc. - (6) Leukocytosis Code(s): D72.829 - ELEVATED WHITE BLOOD CELL COUNT, UNSPECIFIED Status: Acute Plan: Repeat CXR to assess questionable infiltrate seen on initial CXR. UA/UCx. Check lactic acid (7) CAD (coronary artery disease) Code(s): I25.10 - ATHSCL HEART DISEASE OF [place] CORONARY ARTERY W/O ANG PCTRS Status: Chronic off IV diuresis. -echo eF 60% LAD, no aort insuff. -lasix PO chronic meta alkalosis - d/t being on chr diuretics - will give diamox, as she needs little more diuresis. -->completed. UGIB requiring transfusion of FFP and prbc. Gastric ulcer -cw PPI -hgb stable at 8 -no coumadin x 14 days Hypokalemia -being replaced and am labs. COVID neg. rehab placement pending. tried to reach dtr [place] at [phone] and only voice msge.
[2019-10-15] MEDS ORDERED: Potassium Citrate 10 MEQ TAB PO SCH (11:30)
[2019-10-15] MEDS: traZODone HCl 50 MG TAB PO SCH (20:16)
--- NOTE | 2019-10-16 02:23 | PDOC.EVN ---
Event Note - Event Note Event Note: Nurse called. 6 beats asymptomatic Vtach, VSS. Echo pending. Will check BMP, CBC , mag and dig level.
[2019-10-16 04:37] LABS: #Eosinphils 0.1 thou/uL (0.0-0.7); #Lymphocytes 2.4 thou/uL (1.20-3.40); #Monocytes 0.4 thou/uL (0.11-0.59); %Basophils 0.6 % (0.0-1.0); %Eosinophils 1.8 % (0.0-10.0); %Lymphocytes 33.9 % (21.0-51.0); %Monocytes 5.7 % (0.0-10.0); Hemoglobin 7.8 g/dL (12.0-16.0); Mean Corpuscular HGB CONC 32.2 g/dL (32.0-36.0); Mean Corpuscular Hemoglobin 31.6 pg (27.0-31.0); Mean Corpuscular Volume 98.2 fL (78.0-98.0); Mean Platelet Volume 8.8 fL (7.4-10.4); Platelet Count 155 thou/uL (130-400); RBC Distribution Width 16.6 % (11.5-14.5); Red Blood Cell (RBC) Count 2.46 mill/uL (4.20-5.40)
[2019-10-16 04:42] LABS: Digoxin 0.69 ng/mL (0.8-2.0)
[2019-10-16 04:45] LABS: Anion Gap 9 mmol/L (10-20); BUN (Urea Nitrogen) 7 mg/dL (9.8-20.1); Calc. Creatinine Clearance 107 mL/min (70-130); Calcium 8.4 mg/dL (7.8-10.44); Carbon Dioxide 28 mmol/L (23-31); Chloride 106 mmol/L (98-107); Estimated GFR-MDRD 87; Glucose 90 mg/dL (83-110); Magnesium 1.9 mg/dL (1.6-2.6); Potassium 3.6 mmol/L (3.5-5.1); Sodium 139 mmol/L (136-145)
[2019-10-16] MEDS ORDERED: Magnesium 2 GM/50 ML 2 GM in Premix Bag 1 BAG IVPB SCH (06:30)
[2019-10-16 09:00] VITALS: TEMP 98.7
[2019-10-16] MEDS: Digoxin 0.125 MG TAB PO SCH (09:03)
[2019-10-16] MEDS: Nystatin Powder 15 GM BOT TOP SCH (09:04)
[2019-10-16] MEDS: PARoxetine CR 12.5 MG TAB PO SCH (09:04)
--- NOTE | 2019-10-16 10:40 | PRG ---
DATE OF SERVICE: 10/16/2019 SUBJECTIVE: This morning, she is awake, alert and responsive. She says she wants to go home. OBJECTIVE: VITAL SIGNS: Temperature 98, pulse 72, respiratory rate 18, and sats 95% on room air, and blood pressure is 120/60. CHEST: No wheezing. No crackles. CARDIAC: Normal S1 and S2. No gallops. ABDOMEN: No masses. LABORATORY DATA: H and H are stable at 7 and 24. White count . ASSESSMENT: Gastrointestinal bleed, stable; respiratory failure, improved; encephalopathy, improved. PLAN: Pulmonary/Critical Care will follow at a distance. Please call if needed. Job ID: [id number]
[2019-10-16 14:32] VITALS: BP 120/56
--- NOTE | 2019-10-17 10:41 | DIS ---
DATE OF ADMISSION: 10/02/2019 DATE OF DISCHARGE: 10/16/2019 DISCHARGE DIAGNOSES: 1. Decompensated heart failure. 2. Left pleural effusion. 3. Atrial fibrillation, initially on Coumadin. 4. Upper gastrointestinal bleed requiring FFP and packed RBCs. 5. Gastric ulcer. 6. Hypokalemia. 7. Coronary artery disease. 8. Leukocytosis. 9. Tyf-JH-vidyjhken myocardial infarction. 10. COVID negative. DISCHARGE MEDICATIONS: 1. Lasix 40 mg daily. 2. Lopressor 12.5 mg twice a day. 3. Digoxin 125 mcg daily. 4. Vitamin D3 of 150 mcg daily. 5. Vitamin C 500 mg daily. 6. Trazodone 200 mg at bedtime. 7. Paroxetine 37.5 mg daily. 8. Protonix 40 mg twice a day. 9. Nystatin one application daily as needed. PHYSICAL EXAMINATION: VITAL SIGNS: On the day of discharge, temperature 98.7, pulse 87, blood pressure 123/81, satting 95% on room air. GENERAL: The patient is alert, oriented x3. She is not in any acute distress. She is ready to go home. HOSPITAL COURSE: 74-year-old female with history of coronary artery disease, CHF, and atrial fibrillation, presented with shortness of breath and increasing dyspnea as well as altered mentation. The patient uses CPAP at night and chronic Roque. She is admitted for the above. She was diuresed gently. She had chronic metabolic contraction alkalosis and that was corrected little. Initially, she came with AFib with RVR and that has been improved and we resumed her digoxin as well as Lopressor. Her Coumadin was therapeutic. However, at some point, her INR was 2.9 on the day she had an episode of upper GI bleed. The Coumadin was reversed with FFP and packed RBCs as her hemoglobin also was a little down below 7. The Coumadin was on hold until seen by Dr. Gruber in 2 weeks time. Her hemoglobin is 7.8 on the day of discharge. Her potassium 3.6 and magnesium 1.9 with creatinine 0.67. At some point, plan was send her to the rehab but has not been materialized now. The patient is going home with home health. DISPOSITION: She is hemodynamically stable to be discharged home today. DISCHARGE INSTRUCTIONS: Activity as tolerated. Healthy heart diet. Follow up with Dr. Gruber in 10 days time. Do not take Coumadin until seen by Dr. Gruber. Discharge time took over 35 minutes. Job ID: [id number] MTDD
--- NOTE | 2019-10-19 10:33 | PQF ---
CLINICAL DOCUMENTATION CLARIFICATION FORM: Dear Dr. Land Date: 10/19/2019 Please exercise your independent, professional judgment in responding to the clarification form. Clinical indicators are provided on the bottom of this form for your review. Please check appropriate box(es): Conflicting documentation was noted in the Medical Record; please clarify if patient is being treated/monitored for: [ ] Nonstemi type 2 [ ] Ggs-[id number] myocardial infarction. [ ] Other diagnosis [ ] Unable to determine In addition, please specify: Present on Admission (POA): [ ] Yes [ ] No [ ] Unable to determine For continuity of documentation, please document condition throughout progress notes and discharge summary. Thank You. 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 10/09 () Indication for Consultation: When she arrived, her first set of cardiac enzymes showed a troponin I which was slightly elevated, but the subsequent two are unremarkable and obviously negative for myocardial infarction. The elevated first set may be due to the dyspnea or the CHF exacerbation I am uncertain exactly what happened in the events, this was a week ago. She has had no EKG changes to indicate ischemia. Discharge Summary 10/15(Emery) DC diagnosis: Ihe-NS-ztitjumib myocardial infarction RISK FACTORS / RESULTS AND LOCATION IN EMR H&P 10/01(Mar) 74 yo with PMH AFIB, CAD, CHF comes in due to worsening dyspnea and disorientation. Decompensated heart failure. Atrial fibrillation. TREATMENT / RESULTS AND LOCATION IN EMR 10/01 (Brooke) she was started on Lasix 20 mg BID IV Continue to trend troponin. Continue cardiac monitoring. Cardiology Consult 10/09 Thank you, Lianna Gregorio RN, BSN [email or web address] This is a permanent part of the Medical Record [facility]
== END 2019-10-16 15:39 | disposition home health service (06) | DRG 280 ==
LOC: EDBD 00:43 → ERS 00:43 → 2SW 04:08 → 2NO 10-04 22:41 → IMCU/EMU 10-09 19:23 → 2NO 10-13 16:41
PROVIDERS: ADMIT Internal Medicine; ATTEND Internal Medicine
PROC: 30233L1 Transfusion of Nonautologous Fresh Plasma into Peripheral Vein, Percutaneous Approach (ICD-10-PCS; 2019-10-09)
PROC: 30233K1 Transfusion of Nonautologous Frozen Plasma into Peripheral Vein, Percutaneous Approach (ICD-10-PCS; 2019-10-09)
PROC: 0DB78ZX Excision of Stomach, Pylorus, Via Natural or Artificial Opening Endoscopic, Diagnostic (ICD-10-PCS; principal; 2019-10-11)
PROC: 0DJD8ZZ Inspection of Lower Intestinal Tract, Via Natural or Artificial Opening Endoscopic (ICD-10-PCS; 2019-10-11)
PROC: 30233N1 Transfusion of Nonautologous Red Blood Cells into Peripheral Vein, Percutaneous Approach (ICD-10-PCS; 2019-10-11)
DX: I11.0 Hypertensive heart disease with heart failure (principal); I21.4 Non-ST elevation (NSTEMI) myocardial infarction; K26.4 Chronic or unspecified duodenal ulcer with hemorrhage; R57.8 Other shock; G93.41 Metabolic encephalopathy; E87.3 Alkalosis; I48.20 Chronic atrial fibrillation, unspecified; D62 Acute posthemorrhagic anemia; N17.9 Acute kidney failure, unspecified; I47.2 Ventricular tachycardia; Z20.828 Contact with and (suspected) exposure to other viral communicable diseases; I50.33 Acute on chronic diastolic (congestive) heart failure; E87.6 Hypokalemia; D72.829 Elevated white blood cell count, unspecified; T50.2X5A Adverse effect of carbonic-anhydrase inhibitors, benzothiadiazides and other diuretics, initial encounter; G47.30 Sleep apnea, unspecified; I44.7 Left bundle-branch block, unspecified; K25.9 Gastric ulcer, unspecified as acute or chronic, without hemorrhage or perforation; E83.51 Hypocalcemia; K59.00 Constipation, unspecified; Z88.5 Allergy status to narcotic agent; Z79.01 Long term (current) use of anticoagulants; Z79.899 Other long term (current) drug therapy; Z87.891 Personal history of nicotine dependence; Z88.8 Allergy status to other drugs, medicaments and biological substances; Z28.21 Immunization not carried out because of patient refusal; Z90.49 Acquired absence of other specified parts of digestive tract
CPT/HCPCS: 36415; 36416; 36430; 71045; 80048; 80053; 80162; 81001; 82248; 82274; 82553; 82805; 83605; 83735; 83880; 84443; 84484; 85014; 85018; 85025; 85049; 85610; 85730; 86850; 86900; 86901; 87040; 87086; 87635; 88305; 88312; 93005; 93010; 93306; 93798; 96361; 96374; 96375; 97139; C9113; J0696; J1160; J1650; J1940; J2704; J2916; J3430; J3475; J3490; P9016; P9059; U0003